=== PATIENT | male | born 1950 | race Two or more races ===

== ENCOUNTER 2024-02-27 07:21 | Inpatient (IN) | payer OTHER ==
[~2024-02-27] VITALS: Ht 170.2 cm; Wt 90.6 kg
--- NOTE | 2024-02-27 08:48 | DVH ---
CHEST RADIOGRAPH Indication: ro pna Technique: Single frontal view of the chest was obtained Comparison: None FINDINGS: Lines and Tubes: None Lungs: There are low lung volumes. There is no focal lung consolidation. Is no obvious pleural effusi on or pneumothorax. Cardiomediastinal contours: Unremarkable Pulmonary vasculature: Within normal limits. Bones: No acute osseous abnormality. IMPRESSION: 1. Low lung volumes. There is no focal lung consolidation. HS:Y
[2024-02-27 09:34] LABS: Basophils # (auto) 0.1 10 ^3/uL (0-0.2); Basophils % (auto) 0.9 % (0.0-2.0); Eosinophils # (auto) 0 10 ^3/uL (0-0.8); Eosinophils % (auto) 0.2 % (0.0-7.0); Hematocrit 43.7 % (41.0-53.0); Hemoglobin 14.6 g/dL (13.5-17.5); Lymphocytes # (auto) 0.2 10 ^3/uL (0.4-5.4); Lymphocytes % (auto) 1.8 % (10.0-50.0); Mean Corpuscular Hemoglobin 30.7 pg (28.0-32.0); Mean Corpuscular Hgb Conc. 33.5 g/dL (32.0-36.0); Mean Corpuscular Volume 91.8 fL (80.0-100.0); Neutrophils # (auto) 10.9 10 ^3/uL (1.6-8.6); Neutrophils % (auto) 89.1 % (37.0-80.0); Platelet Count (auto) 332 10^3/uL (140-450); Red Blood Cells 4.76 10^6/uL (4.5-5.90); Red Cell Distribution Width 13.5 % (11.8-14.3); White Blood Cell 12.3 10^3/uL (4.4-10.8)
[2024-02-27 09:56] LABS: Alanine Aminotransferase 11 U/L (7-40); Albumin 4.6 g/dL (3.2-4.8); Alkaline Phosphatase 114 U/L (46-116); Anion Gap 8 (5-15); BUN/Creatinine Ratio 12.3 (10.0-20.0); Bilirubin, Total 0.6 mg/dL (0.2-1.0); Blood Urea Nitrogen 14 mg/dL (9-23); Calcium 9.8 mg/dL (8.7-10.4); Carbon Dioxide 26 mmol/L (20-31); Chloride 104 mmol/L (98-107); Glucose 104 mg/dL (74-106); Sodium 138 mmol/L (136-145); Total Protein 7.7 g/dL (5.7-8.2)
[2024-02-27 10:14] LABS: Aspartate Aminotransferase 11 U/L (13-40)
--- NOTE | 2024-02-27 10:31 | ED.PDOC ---
History of Present Illness HPI Comments 73 y.o male with PMH of parkinson's disease, presents to the ED via EMS for an evaluation of generalized weakness. Patient reports he fell down, lost consciousness and woke up on the floor confused. Per , patient has been sick for a couple of days consisted of nasal drip, congestion and sweats and was pres cribed Promethazine by PCP. Patient picked medication up yesterday and took it then but woke up today very weak and unable to life himself up which is new per statement. Patient states he lives in a two story house, his room is on the second floor and woke up on the first floor today. He is unable to recollect much events, was asked if he knew what he had for dinner or lunch and was unable to answer. reports this is not his normal baseline and is usually up and ambulating. Patient denies any chest pain, SOB, abdominal pain. Chief Complaint: General Weakness Time Seen by MD: 11:28 Reviewed Notes: Allergies Allergies: Coded Allergies: NO KNOWN ALLERGIES (Unverified , 02/27/24) Information Source: Patient Mode of Arrival: EMS Severity: Moderate Timing: Hours Duration: Since onset Past Medical History Past Medical History (Other): Parkinsons Surgical History: Denies all surgeries Family History Family History: Reviewed,noncontributory to illness Social History Smoker: Non-Smoker Alcohol: Denies ETOH Use Drugs: Denies Drug Use Lives In: Home Constitutional: reports: weakness; denies: chills, diaphoresis, fatigue, fever, malaise, sweats, others EENTM: denies: blurred vision, double vision, ear bleeding, ear discharge, ear drainage, ear pain, ear ringing, eye pain, eye redness, hearing loss, mouth pain, mouth swelling, nasal discharge, nose bleeding, nose congestion, nose pain, photophobia, tearing, throat pain, throat swelling, voice changes, others Respiratory: denies: cough, hemoptysis, orthopnea, SOB at rest, shortness of breath, SOB with excertion, stridor, wheezing, others Cardiovascular: denies: chest pain, dizzy spells, diaphoresis, Dyspnea on exertion, edema, irregular heart beat, left arm pain, lightheadedness, palpitations, PND, syncope, others Gastrointestinal: denies: abdomen distended, abdominal pain, blood streaked bowels, constipated, diarrhea, dysphagia, difficulty swallowing, hematemesis, melena, nausea, poor appetite, poor fluid intake, rectal bleeding, rectal pain, vomiting, others Genitourinary: denies: burning, dysuria, flank pain, frequency, hematuria, incontinence, penile discharge, penile sore, pain, testicle pain, testicle swelling, urgency, others Neurological: denies: dizziness, fainting, headache, left sided numbness, left sided weakness, numbness, paresthesia, pre-existing deficit, right sided numb ness, right sided weakness, seizure, speech problems, tingling, tremors, weakness, others Musculoskeletal: denies: back pain, gout, joint pain, joint swelling, muscle pain, muscle stiffness, neck pain, others Integumetry: denies: bruises, change in color, change in hair/nails, dryness, laceration, lesions, lumps, rash, wounds, others Allergic/Immunocompromised: denies: Difficulty Healing, Frequent Infections, Hives, Itching, others Hematologic/Lymphatic: denies: anemia, blood clots, easy bleeding, easy bruising, swollen glands, others Endocrine: denies: excessive hunger, excessive sweating, excessive thirst, excessive urination, flushing, intolerance to cold, intolerance to heat, unexplained weight gain, unexplained weight loss, others Psychiatric: denies: anxiety, bipolar disorder, depression, hopeless, panic disorder, schizophrenia, sleepless, suicidal, others All Other Systems: Reviewed and Negative Physical Exam Exam Comments Patient lying in ambulance rthayer. Clothes were soaked with urine General Appearance: No Apparent Distress, Normal HEENT: Normal ENT Inspection Neck: Normal, Normal Inspection Respiratory: Lungs Clear, No Respiratory Distress, Normal Breath Sounds Cardiovascular: Normal Peripheral Pulses, Regular Rate/Rhythm Breast Exam: Deferred Gastrointestinal: Non Tender Genitalia: Deferred Pelvic: Deferred Rectal: Deferred Extremities: Normal inspection Neurologic: Alert, Normal Affect, Other (Does not seem to remember occurrences of yesterday) Cerebellar Function: Normal Reflexes: NOT DONE Skin: Dry, Normal Color, Warm Lymphatic: No Adenopathy Was a procedure done? Was a procedure done?: No EKG EKG : Comments 106 sinus tachycardia with non specific T wave changes Differential Dx Considerations may include: failure to thrive, dehydration, electrolyte imbalance, dementia, CVA, TIA, URI, Influenza, hypoglycemia X-Ray, Labs, Meds, VS Vital Signs Date Time Temp Pulse Resp B/P (MAP) Pulse Ox O2 Delivery O2 Flow Rate FiO2 02/27/24 14:00 102 20 135/61 (85) 93 02/27/24 13:49 102 22 94 Room Air* 0 21 02/27/24 13:38 99.2 105 20 121/70 (87) 92 99.2 02/27/24 07:39 106 02/27/24 07:37 99.5 103 20 136/84 (101) 97 Lab Test 02/27/24 12:00 02/27/24 10:50 02/27/24 09:16 02/27/24 00:00 Range/Units Troponin I High Sensitivity 4 4 3 L </=54 ng/L White Blood Count 12.3 H 4.4-10.8 10^3/uL Red Blood Count 4.76 4.5-5.90 10^6/uL Hemoglobin 14.6 13.5-17.5 g/dL Hematocrit 43.7 41.0-53.0 % Mean Corpuscular Volume 91.8 80.0-100.0 fL Mean Corpuscular Hemoglobin 30.7 28.0-32.0 pg Mean Corpuscular Hemoglobin Concent 33.5 32.0-36.0 g/dL Red Cell Distribution Width 13.5 11.8-14.3 % Platelet Count 332 140-450 10^3/uL Mean Platelet Volume 7.5 6.9-10.8 fL Neutrophils (%) (Auto) 89.1 H 37.0-80.0 % Lymphocytes (%) (Auto) 1.8 L 10.0-50.0 % Monocytes (%) (Auto) 8.0 0.0-12.0 % Eosinophils (%) (Auto) 0.2 0.0-7.0 % Basophils (%) (Auto) 0.9 0.0-2.0 % Neutrophils # (Auto) 10.9 H 1.6-8.6 10 ^3/uL Lymphocytes # (Auto) 0.2 L 0.4-5.4 10 ^3/uL Monocytes # (Auto) 1.0 0-1.3 10 ^3/uL Eosinophils # (Auto) 0 0-0.8 10 ^3/uL Basophils # (Auto) 0.1 0-0.2 10 ^3/uL Nucleated Red Blood Cells 0.0 % Sodium Level 138 136-145 mmol/L Potassium Level 4.0 3.5-5.1 mmol/L Chloride Level 104 98-107 mmol/L Carbon Dioxide Level 26 20-31 mmol/L Anion Gap 8 5-15 Blood Urea Nitrogen 14 9-23 mg/dL Creatinine 1.14 0.700-1.30 mg/dL Glomerular Filtration Rate Calc 68 >90 mL/min BUN/Creatinine Ratio 12.3 10.0-20.0 Serum Glucose 104 74-106 mg/dL Calcium Level 9.8 8.7-10.4 mg/dL Total Bilirubin 0.6 0.2-1.0 mg/dL Aspartate Amino Transferase (AST) 11 L 13-40 U/L Alanine Aminotransferase (ALT) 11 7-40 U/L Alkaline Phosphatase 114 46-116 U/L Total Protein 7.7 5.7-8.2 g/dL Albumin 4.6 3.2-4.8 g/dL Vitamin B12 Level 800 211-911 pg/mL Folic Acid 22.49 >5.38 ng/mL Thyroid Stimulating Hormone (TSH) 0.68 0.55-4.78 uIU/mL Influenza Type A Antigen Pending Influenza Type B Antigen Pending SARS-CoV-2 Antigen (Rapid) Pending 73-year-old male presents here status post fall. He did take Phenergan last night that was prescribed after a cold. And he states after he took it he felt funny. He did have a fall last night but does not recall the events. CT scan of the brain has been done which is unremarkable. Blood work also has been done which is unremarkable. At this time patient however feeling very weak and is unable to stand up and ambulate. states he has been sick with cough cold runny nose for a few days. At this time I believe he would benefit from inpatient admission and evaluation. Dr. Ugalde has been consulted. Time of 1ST Reevaluation: 12:11 Reevaluation 1ST: Unchanged Patient Education/Counseling: Diagnosis, Treatment, Prognosis Family Education/Counseling: Diagnosis, Treatment, Prognosis Departure 1 Departure Time of Disposition: 15:33 Impression: Primary Impression: Generalized weakness Disposition: ADMITTED INPATIENT Admit to: [facility] Condition: Fair Critical Care Note Critical Care Time?: No Stability Stability form required: No I personally scribed for DONNA FREDERICK MD ([email or web address]) on 02/27/24 at 10:31. Electronically submitted by Jaleesa Williamson ([facility]). I personally scribed for DONNA FREDERICK MD ([email or web address]) on 02/27/24 at 12:16. Electronically submitted by Jaleesa Williamson ([facility]). I personally scribed for DONNA FREDERICK MD ([email or web address]) on 02/27/24 at 12:17. Electronically submitted by Jaleesa Williamson ([facility]). I personally scribed for DONNA FREDERICK MD ([email or web address]) on 02/27/24 at 17:02. Electronically submitted by Jaleesa Williamson ([facility]). DONNA FREDERICK MD Feb 27, 2024 10:31
--- NOTE | 2024-02-27 13:00 | DVH ---
EXAM: CT HEAD WITHOUT CONTRAST HISTORY: sp fall COMPARISON: None TECHNIQUE: Axial images of the head were obtained and reformatted in coronal and sagittal planes. All CT scans at this medical facility are performed using dose modulation techniques as appropriate t o a performed exam including the following: Automated exposure control was utilized; adjustment of th e MA and/or KV according to patient size; and use of iterative reconstruction technique. CT Dose: CTDI volume is 59.27 mGy. Dose-length product is 950.03 mGy*cm FINDINGS: There is no evidence of acute intracranial hemorrhage, mass, mass effect midline shift. There is no h ydrocephalus or extra-axial fluid collection. Nieto-white matter differentiation is maintained. The visualized paranasal sinuses and mastoid air cells are clear. The calvarium is intact. IMPRESSION: 1. No acute intracranial process. HS:Y
[2024-02-27 13:49] VITALS: PULSE 102; RESP 22; O2SAT 94
--- NOTE | 2024-02-27 15:25 | DVHHP2 ---
History of Present Illness Reason for Visit: Generalized weakness status post fall History of Present Illness 73-year-old male who has a very poor historian currently is not at bedside. 73-year-old male with a known history of Parkinson's currently on carbidopa levodopa found to have a fall at home. Eventually patient was brought to ER. CT head shows no evidence of any acute pathology. Patient has stated that recently he had a nasal congestion flu-like symptoms eventually was given Phenergan by the primary physician. After Phenergan he was feeling altered. 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 Allergies: Coded Allergies: NO KNOWN ALLERGIES (Unverified , 02/27/24) Medications Current Medications Medications Dose Ordered Sig/Ike Route Start Time Stop Time Status Last Admin Dose Admin Sodium Chloride 1,000 ml @ 60 mls/hr [id number] IV 02/27/24 15:30 UNV Acetaminophen/ Hydrocodone Bitart 1 tab Q4HP PRN PO 02/27/24 15:30 UNV Ondansetron HCl 4 mg Q4HP PRN IV 02/27/24 15:30 UNV Docusate Sodium 100 mg BIDPRN PRN PO 02/27/24 15:30 UNV Enoxaparin Sodium 40 mg DAILY SC 02/28/24 10:00 UNV Acetaminophen 650 mg Q6HP PRN PO 02/27/24 15:30 UNV Morphine Sulfate 2 mg Q4HPRN PRN IV 02/27/24 15:30 UNV Nitroglycerin 0.4 mg Q5MINP PRN SL 02/27/24 15:30 UNV Morphine Sulfate 2 mg Q30M PRN IV 02/27/24 15:30 UNV Exam Vital Signs Vital Signs Date Time Temp Pulse Resp B/P (MAP) Pulse Ox O2 Delivery O2 Flow Rate FiO2 02/27/24 14:00 102 20 135/61 (85) 93 02/27/24 13:49 Room Air* 0 21 02/27/24 13:38 99.2 99.2 Exam HEENT pupils are reactive Neck is supple CV is S1-S2 regular rate and rhythm Respiratory diminished breath sounds bases GI positive bowel sound Extremity no edema 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 commands Labs/Xrays Labs Test 02/27/24 12:00 02/27/24 09:16 Range/Units Troponin I High Sensitivity 4 </=54 ng/L White Blood Count 12.3 H 4.4-10.8 10^3/uL Red Blood Count 4.76 4.5-5.90 10^6/uL Hemoglobin 14.6 13.5-17.5 g/dL Hematocrit 43.7 41.0-53.0 % Mean Corpuscular Volume 91.8 80.0-100.0 fL Mean Corpuscular Hemoglobin 30.7 28.0-32.0 pg Mean Corpuscular Hemoglobin Concent 33.5 32.0-36.0 g/dL Red Cell Distribution Width 13.5 11.8-14.3 % Platelet Count 332 140-450 10^3/uL Mean Platelet Volume 7.5 6.9-10.8 fL Neutrophils (%) (Auto) 89.1 H 37.0-80.0 % Lymphocytes (%) (Auto) 1.8 L 10.0-50.0 % Monocytes (%) (Auto) 8.0 0.0-12.0 % Eosinophils (%) (Auto) 0.2 0.0-7.0 % Basophils (%) (Auto) 0.9 0.0-2.0 % Neutrophils # (Auto) 10.9 H 1.6-8.6 10 ^3/uL Lymphocytes # (Auto) 0.2 L 0.4-5.4 10 ^3/uL Monocytes # (Auto) 1.0 0-1.3 10 ^3/uL Eosinophils # (Auto) 0 0-0.8 10 ^3/uL Basophils # (Auto) 0.1 0-0.2 10 ^3/uL Nucleated Red Blood Cells 0.0 % Sodium Level 138 136-145 mmol/L Potassium Level 4.0 3.5-5.1 mmol/L Chloride Level 104 98-107 mmol/L Carbon Dioxide Level 26 20-31 mmol/L Anion Gap 8 5-15 Blood Urea Nitrogen 14 9-23 mg/dL Creatinine 1.14 0.700-1.30 mg/dL Glomerular Filtration Rate Calc 68 >90 mL/min BUN/Creatinine Ratio 12.3 10.0-20.0 Serum Glucose 104 74-106 mg/dL Calcium Level 9.8 8.7-10.4 mg/dL Total Bilirubin 0.6 0.2-1.0 mg/dL Aspartate Amino Transferase (AST) 11 L 13-40 U/L Alanine Aminotransferase (ALT) 11 7-40 U/L Alkaline Phosphatase 114 46-116 U/L Total Protein 7.7 5.7-8.2 g/dL Albumin 4.6 3.2-4.8 g/dL Assessment/Plan Assessment/Plan 73-year-old male who initially presented to hospital with status post fall 1. Acute encephalopathy status post fall 2. Chronic asthma 3. Parkinson's disease -admit to telemetry, resume carbidopa levodopa -O2 supplementation as needed Plan discussed with: Patient My Orders Orders - SONIA ZAVALA MD Procedure Category Date Status Time * Medical Donation Professional CONS 02/27/24 Transmitted Consult Admit ADMIT 02/27/24 Transmitted 15:16 Code Status CODE 02/27/24 Transmitted 15:16 2 Gm Sodium Diet DIET 02/27/24 Transmitted Dinner Sodium Chloride 0.9% PHA 02/27/24 Logged 15:30 Hydrocodone-Acet PHA 02/27/24 Logged 5/325mg Tab ([place] 15:30 Ondansetron Hcl PHA 02/27/24 Logged (Zofran) 15:30 Docusate Sodium PHA 02/27/24 Logged Capsule (Colace 15:30 Enoxaparin Sodium PHA 02/28/24 Logged (Lovenox) 10:00 Complete Blood Count LAB 02/28/24 Verified 04:00 Comprehensive LAB 02/28/24 Verified Metabolic Panel 04:00 Pt Request For Service PT 02/27/24 Logged 15:16 Condition: Stable LELIA 02/27/24 In Process 15:16 Acetaminophen Tablet PHA 02/27/24 Logged (Tylenol Tablet) 15:30 Morphine Sulfate PHA 02/27/24 Logged Injection 15:30 Nitroglycerin PHA 02/27/24 Logged Sublingual (Ntrostat 15:30 Morphine Sulfate PHA 02/27/24 Logged Injection 15:30 Stat Ekg For Chest LELIA 02/27/24 In Process Pain 15:16 Notify Of Changes LELIA 02/27/24 In Process From Base 15:16 Spiral Runner For LELIA 02/27/24 In Process 24 Hours 15:16 Emergency Dysrhythmia LELIA 02/27/24 In Process Protocol 15:16 Rhythm Strips Once LELIA 02/27/24 In Process Every Shift 15:16 Oxygen By Nasal RT 02/27/24 Transmitted Cannula 15:16 Vitamin B12 LAB 02/27/24 Logged 15:16 Thyroid Stimulating LAB 02/27/24 Logged Hormone 15:16 RPR LAB 02/27/24 Logged 15:16 Folate (Folic Acid) LAB 02/27/24 Logged 15:16 Date of Service: Feb 27, 2024 Billing Provider: SONIA ZAVALA MD Common Visit Codes: NOT BILLABLE SONIA AZVALA MD Feb 27, 2024 15:25
[2024-02-27] MEDS ORDERED: MORPHINE SULFATE INJ 2 MG/ml SYRG IV PRN ×2 (15:30)
[2024-02-27] MEDS: SODIUM CHLORIDE 0.9% 1,000 ML IV SCH (15:30)
[2024-02-27] MEDS ORDERED: DOCUSATE SOD 100 MG CAP PO PRN (15:30)
[2024-02-27] MEDS ORDERED: NITROGLYCERIN 0.4 MG SL TAB SL PRN (15:30)
[2024-02-27] MEDS ORDERED: ONDANSETRON HCL 4 MG/2 ML VIAL IV PRN (15:30)
[2024-02-27 16:31] LABS: Folate (Folic Acid) 22.49 ng/mL (>5.38)
[2024-02-27] MEDS: CARBIDOPA W LEVODOPA 25/100mg TABLET PO SCH (16:46)
[2024-02-27 16:49] LABS: Urine Bacteria FEW /hpf (None Seen); Urine Blood Negative /uL (Negative); Urine Clarity Clear (Clear); Urine Color Yellow (Yellow); Urine Mucus FEW (None Seen); Urine Protein, UAD Negative (Negative); Urine Specific Gravity 1.021 (1.001-1.035); Urine Urobilinogen 2 mg/dL (Negative); Urine pH 6.5 (5.0-9.0)
[2024-02-27 17:27] LABS: Urine WBC 0 /hpf (0 - 3)
[2024-02-27 18:31] LABS: Rapid Influenza A Negative (Negative); Rapid Influenza B Negative (Negative)
[2024-02-27 18:47] LABS: COVID19 ANTIGEN SOFIA FIA POSITIVE (NEGATIVE)
[2024-02-27] MEDS: ACETAMINOPHEN 325 MG TAB PO PRN (20:50)
[2024-02-27] MEDS: HYDROcodone-ACET 5/325MG TAB PO PRN (20:50)
[2024-02-28] VITALS (18 sets, daily range): BP systolic 110–149; BP diastolic 52–79; PULSE 78–104; RESP 16–36; TEMP 98–100.1; O2SAT 92–100
[2024-02-28 04:37] LABS: Urine Bacteria None Seen /hpf (None Seen); Urine WBC None Seen /hpf (0 - 3)
[2024-02-28 04:44] LABS: Urine Blood Negative /uL (Negative); Urine Clarity Clear (Clear); Urine Color Yellow (Yellow); Urine Mucus FEW (None Seen); Urine Protein, UAD Negative (Negative); Urine Specific Gravity 1.018 (1.001-1.035); Urine Urobilinogen Normal (Negative); Urine pH 5.5 (5.0-9.0)
[2024-02-28 08:17] LABS: Basophils # (auto) 0 10 ^3/uL (0-0.2); Basophils % (auto) 0.5 % (0.0-2.0); Eosinophils # (auto) 0 10 ^3/uL (0-0.8); Eosinophils % (auto) 0.1 % (0.0-7.0); Hematocrit 42.6 % (41.0-53.0); Hemoglobin 14.8 g/dL (13.5-17.5); Lymphocytes # (auto) 0.5 10 ^3/uL (0.4-5.4); Lymphocytes % (auto) 5.3 % (10.0-50.0); Mean Corpuscular Hemoglobin 31.9 pg (28.0-32.0); Mean Corpuscular Hgb Conc. 34.7 g/dL (32.0-36.0); Monocytes # (auto) 0.9 10 ^3/uL (0-1.3); Monocytes % (auto) 10.1 % (0.0-12.0); Neutrophils # (auto) 7.3 10 ^3/uL (1.6-8.6); Platelet Count (auto) 256 10^3/uL (140-450); Red Blood Cells 4.63 10^6/uL (4.5-5.90); Red Cell Distribution Width 13.2 % (11.8-14.3); White Blood Cell 8.7 10^3/uL (4.4-10.8)
[2024-02-28 08:27] LABS: Alkaline Phosphatase 94 U/L (46-116); Anion Gap 9 (5-15); Blood Urea Nitrogen 16 mg/dL (9-23); Carbon Dioxide 24 mmol/L (20-31); Chloride 105 mmol/L (98-107); Glucose 98 mg/dL (74-106); Potassium 4.4 mmol/L (3.5-5.1); Sodium 138 mmol/L (136-145)
[2024-02-28 08:28] LABS: Albumin 4.2 g/dL (3.2-4.8)
[2024-02-28 08:29] LABS: Bilirubin, Total 0.5 mg/dL (0.2-1.0); Total Protein 6.9 g/dL (5.7-8.2)
[2024-02-28 08:33] LABS: Alanine Aminotransferase < 9 U/L (7-40); Aspartate Aminotransferase 49 U/L (13-40)
[2024-02-28] MEDS: ENOXAPARIN SOD 40 MG/0.4 ML SYRINGE SC SCH (10:28)
[2024-02-28] MEDS: DONEPEZIL HYDROCHLORIDE 5 MG TAB PO SCH (10:28)
[2024-02-28] MEDS ORDERED: ALBUTEROL SULF 2.5 MG/0.5ML(0.5%) NEB SOLN NEB PRN ×2 (16:45)
[2024-02-28] MEDS: ALBUTEROL SULF 2.5 MG/0.5ML(0.5%) NEB SOLN ONE (16:45)
[2024-02-28] MEDS: methylPREDNISolone SOD SUCC 125 MG/2 ML VL IV ONE (16:58)
--- NOTE | 2024-02-28 17:20 | ECG ---
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
--- NOTE | 2024-02-28 17:48 | DVH ---
EXAM: XY CHEST XRAY 1 VIEW TECHNIQUE: Single frontal chest radiograph CLINICAL HISTORY: sob COMPARISON: XY CHEST PORTABLE on DOS: 02/27/24 Findings/Impression: Frontal chest radiograph demonstrates no acute osseous or superficial soft tissue abnormalities. The trachea is midline. The cardiac silhouette and mediastinum are within normal limits. Marked low lung volumes with bronchovascular crowding. No pneumothorax, pleural effusions, or consolidations.
--- NOTE | 2024-02-28 19:14 | DVHPN2 ---
Subjective Overnight events noted. Patient was found to be in respiratory distress requiring 4-5 L of oxygen, stat ABG has been ordered breathing treatment and Solu-Medrol has been ordered as well patient will be upgraded to D OU. 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 following commands Medications Current Medications Medications Dose Ordered Sig/Ike Route Start Time Stop Time Status Last Admin Dose Admin Sodium Chloride 1,000 ml @ 60 mls/hr [id number] IV 02/27/24 15:30 02/28/24 08:33 60 MLS/HR Acetaminophen/ Hydrocodone Bitart 1 tab Q4HP PRN PO 02/27/24 15:30 02/28/24 16:14 1 TAB Ondansetron HCl 4 mg Q4HP PRN IV 02/27/24 15:30 Docusate Sodium 100 mg BIDPRN PRN PO 02/27/24 15:30 Enoxaparin Sodium 40 mg DAILY SC 02/28/24 10:00 02/28/24 10:28 40 MG Acetaminophen 650 mg Q6HP PRN PO 02/27/24 15:30 02/28/24 10:44 650 MG Morphine Sulfate 2 mg Q4HPRN PRN IV 02/27/24 15:30 Nitroglycerin 0.4 mg Q5MINP PRN SL 02/27/24 15:30 Morphine Sulfate 2 mg Q30M PRN IV 02/27/24 15:30 Carbidopa/Levodopa 1 tab TID PO 02/27/24 16:00 02/28/24 14:43 1 TAB Donepezil HCl 10 mg DAILY PO 02/28/24 10:00 02/28/24 10:28 10 MG Albuterol 2.5 mg Q2HPRN PRN NEB 02/28/24 16:45 Methylprednisolone Sodium Succinate 60 mg Q8HR IV 02/28/24 22:00 Laboratory Results Laboratory Tests 02/28/24 07:14 Chemistry Test 02/28/24 07:14 Albumin 4.2 g/dL (3.2-4.8) Calcium Level 9.0 mg/dL (8.7-10.4) Total Protein 6.9 g/dL (5.7-8.2) LFT Test 02/28/24 07:14 Alanine Aminotransferase (ALT) < 9 U/L (7-40) Alkaline Phosphatase 94 U/L (46-116) Aspartate Amino Transferase (AST) 49 U/L (13-40) H Total Bilirubin 0.5 mg/dL (0.2-1.0) Urinalysis Test 02/28/24 01:55 Urine Color Yellow (Yellow) Urine Clarity Clear (Clear) Urine pH 5.5 (5.0-9.0) Urine Specific [place] 1.018 (1.001-1.035) Urine Protein Negative (Negative) Urine Ketones Trace (Negative) Urine Blood Negative /uL (Negative) Urine Nitrite Negative (Negative) Urine Bilirubin Negative (Negative) Urine Urobilinogen Normal mg/dL (Negative) Urine Leukocyte Esterase Negative /uL (Negative) Urine RBC 1 /hpf (0 - 3) Urine WBC None seen /hpf (0 - 3) Urine Squamous Epithelial Cells None seen /hpf (<5) Urine Bacteria None seen /hpf (None Seen) Urine Mucus Few (None Seen) Urine Glucose Normal mg/dL (Normal) Blood Gas Results Test 02/28/24 16:54 Arterial Blood pH 7.474 (7.350-7.450) FiO2 % 40.0 Assessment/Plan Assessment/Plan 73-year-old male who initially presented to hospital with status post fall found to have 1. Acute hypoxic respiratory failure suspected secondary to acute asthma exacerbation we will rule out pulmonary embolism 2. Acute on chronic asthma exacerbation 3. Parkinson's disease 4. Acute encephalopathy secondary to 1. -med nebs, IV Solu-Medrol, stat ABG, CT angio to rule out PE. -plan of care discussed with the bedside RN as well as patient's at bedside when he was on the tele floor. Plan discussed with: Patient, Spouse My Orders Orders - SONIA ZAVALA MD Procedure Category Date Status Time * Farm Machine Operator CONS 02/28/24 Transmitted Consult 04:02 Abg W/ Co-Ox RT 02/28/24 Logged 16:31 Albuterol Medneb PHA 02/28/24 In Process (Ventolin Medneb) 16:45 Chest Xray 1 View XY 02/28/24 Resulted 16:31 *Consult CONS 02/28/24 Transmitted / 16:35 Methylprednisolone PHA 02/28/24 In Process Sod Succ (Solu Medrol 22:00 Apply Barrier Cream LELIA 02/28/24 In Process 10:00 Specialty Bed Mattress ORDERS 02/28/24 Transmitted 10:00 * Dietary Consult CONS 02/28/24 Transmitted 16:52 Transfer Orders XFER 02/28/24 Transmitted 17:03 Abg W/ Co-Ox RT 02/28/24 Logged 18:30 Mrsa Screen ANGELINA 02/28/24 In Process 18:07 Incentive Spirometry ORDERS 02/28/24 Transmitted 19:[address] Chest CT 02/28/24 Logged Contrast 19:[address] 02/28/24 Logged Contrast 19:11 Date of Service: Feb 28, 2024 Billing Provider: SONIA ZAVALA MD Common Visit Codes: NOT BILLABLE SONIA ZAVALA MD Feb 28, 2024 19:14
[2024-02-28 19:19] LABS: Base Excess -2.4 mmol/L (-2.0-3.0)
[2024-02-28] MEDS: methylPREDNISolone SOD SUCC 125 MG/2 ML VL IV SCH (21:30)
[2024-02-29] VITALS (35 sets, daily range): BP systolic 109–139; BP diastolic 55–93; PULSE 61–82; RESP 12–26; TEMP 97.7–98.8; O2SAT 91–100
[2024-02-29] MEDS: IOHEXOL 350 MG/ML 100ML IJ ONE (08:01)
--- NOTE | 2024-02-29 09:03 | DVH ---
CTA Chest with intravenous contrast INDICATION: Rule out pulmonary embolism COMPARISON: None TECHNIQUE: Multidetector spiral CTA of the chest was performed of the chest with intravenous contrast . PULMONARY ANGIOGRAPHY PROTOCOL was utilized using a bolus-tracking technique centered on the main p ulmonary artery. Axial, coronal and sagittal multiplanar and MIP reformats were performed. Radiation Dose : 1. Chest: CTDI volume is 28.09 mGy. Dose-length product is 928.65 mGy*cm The dose indicators for CT are the volume Computed Tomography (CT) Dose Index (CTDIvol) and the Dose Length Product (DLP), and are measured in units of mGy and mGy-cm, respectively. These indicators are not patient dose, but values generated from the CT scanner acquisition factors. The report includes radiation exposure data for exposures received during this examination. Findings: Pulmonary artery: No pulmonary embolism Lower neck: Normal thyroid. Lungs: Bibasilar consolidations, suspicious for pneumonia or aspiration. Probable mild interstitial p ulmonary edema. Heart/Vascular Structures: Cardiomegaly. Lymph Nodes: No adenopathy Pleura: No pleural effusion or significant pneumothorax. Musculoskeletal: No acute osseous abnormality. Soft tissues: Normal. Upper abdomen: Limited portions of the upper abdomen are unremarkable. IMPRESSION: 1. No pulmonary embolism. 2. Bibasilar consolidations, suspicious for pneumonia or aspiration. 3. Probable mild interstitial pulmonary edema.
[2024-02-29] MEDS ORDERED: guaiFENesin 200 MG/10 ML UD GT PRN (11:30)
--- NOTE | 2024-02-29 12:14 | DVHINCON2 ---
Date of service: Feb 29, [address] Pyle Reason for Consultation COVID History of Present Illness This is a 73-year-old male who presents to the hospital with a complaint of fall at home. He has a known history of Parkinson's currently on carbidopa levodopa. Eventually patient was brought to ER. CT head shows no evidence of any acute pathology. Patient has stated that recently he had a nasal congestion flu-like symptoms and sweats was treated with Phenergan by the primary physician. After Phenergan he was feeling altered. Patient states he lives in a two story house, his room is on the second floor and woke up on the first floor today. He is unable to recollect much events, was asked if he knew what he had for dinner or lunch and was unable to answer. reports this is not his normal baseline and is usually up and ambulating. Patient denies any chest pain, SOB, abdominal pain. Past Medical History asthma and Parkinson's disease Past Surgical History None Family History: Patient reports no known family medical history. Allergies: Coded Allergies: NO KNOWN ALLERGIES (Unverified , 02/27/24) Home Meds Unable to Obtain Active Prescriptions or Reported Meds Current Medications Current Medications Medications (Trade) Dose Ordered Sig/Ike Route PRN Reason Start Time Stop Time Status Last Admin Albuterol (Ventolin Medneb) 2.5 mg Q4HR PRN NEB SHORTNESS OF BREATH 02/28/24 16:45 02/28/24 16:54 DC Albuterol (Ventolin Medneb) 2.5 mg Q2HPRN PRN NEB SHORTNESS OF BREATH 02/28/24 16:45 Methylprednisolone Sodium Succinate (Solu Medrol) 60 mg Q8HR IV 02/28/24 22:00 02/29/24 05:41 Piperacillin Sod/ Tazobactam Sod 100 ml @ 25 mls/hr Q8H IV 02/29/24 12:00 Guaifenesin (Robitussin Plain Liquid) 200 mg Q4HP PRN GT FOR COUGH 02/29/24 11:30 Review of Systems General: night sweats HEENT: nasal congestion and flu symptoms Respiratory: No Cough, dyspnea, sputum production Cardiovascular: No Chest pain, palpitations or leg edema Gastrointestinal: No Nausea, vomiting, diarrhea, abdominal pain Genitourinary: No Dysuria, urinary frequency, hematuria, pelvic pain Skin: No Rashes, ulcers, abscesses, redness or swelling Musculoskeletal: No Joint pain, muscle pain or swelling Neurologic: Altered mental status, fall Psychiatric: confusion Vital Signs Vital Signs Date Time Temp Pulse Resp B/P (MAP) Pulse Ox O2 Delivery O2 Flow Rate FiO2 02/29/24 11:01 70 14 126/70 (88) 97 02/29/24 10:15 Nasal Cannula 6.0 02/29/24 10:15 44 02/29/24 08:01 98.8 98.8 Physical Exam HEENT pupils are reactive Neck is supple CV is S1-S2 regular rate and rhythm Respiratory diminished breath sounds bases GI positive bowel sound Extremity no edema honey blender no gross deficit Labs/Diagnostic Data Labs Test 02/28/24 19:00 02/28/24 16:54 02/28/24 07:14 02/28/24 01:55 Range/Units Blood Gas Specimen Type Arterial Blood Gas Sample Site Right radial Blood Gas Patient Temperature 37.0 Arterial Blood Date Drawn [id number] Arterial Blood pH 7.454 H 7.350-7.450 Arterial Blood Partial Pressure CO2 29.5 L 35.0-48.0 mmHg Arterial Blood Partial Pressure O2 71.1 L 83.0-108.0 mmHg Arterial Blood HCO3 20.2 L 21.0-28.0 mmol/L Arterial Blood Oxygen Saturation 94.3 94.0-98.0 % Arterial Blood Base Excess -2.4 L -2.0-3.0 mmol/L Arterial Blood Oxyhemoglobin 93.5 L 94.0-98.0 % Arterial Blood Carboxyhemoglobin 0.6 0.5-1.5 % Arterial Blood Methemoglobin 0.2 0.0-1.5 % Angel Test N/a Blood Gas Total Hemoglobin 14.30 13.5-17.5 g/dL Blood Gas Modality Mask - nrb FiO2 % 100.0 Blood Gas Liter Flow 5.00 Blood Gas Spontaneous Rate 32 White Blood Count 8.7 # 4.4-10.8 10^3/uL Red Blood Count 4.63 4.5-5.90 10^6/uL Hemoglobin 14.8 13.5-17.5 g/dL Hematocrit 42.6 41.0-53.0 % Mean Corpuscular Volume 92.0 80.0-100.0 fL Mean Corpuscular Hemoglobin 31.9 28.0-32.0 pg Mean Corpuscular Hemoglobin Concent 34.7 32.0-36.0 g/dL Red Cell Distribution Width 13.2 11.8-14.3 % Platelet Count 256 140-450 10^3/uL Mean Platelet Volume 7.7 6.9-10.8 fL Neutrophils (%) (Auto) 84.0 H 37.0-80.0 % Lymphocytes (%) (Auto) 5.3 L 10.0-50.0 % Monocytes (%) (Auto) 10.1 0.0-12.0 % Eosinophils (%) (Auto) 0.1 0.0-7.0 % Basophils (%) (Auto) 0.5 0.0-2.0 % Neutrophils # (Auto) 7.3 1.6-8.6 10 ^3/uL Lymphocytes # (Auto) 0.5 0.4-5.4 10 ^3/uL Monocytes # (Auto) 0.9 0-1.3 10 ^3/uL Eosinophils # (Auto) 0 0-0.8 10 ^3/uL Basophils # (Auto) 0 0-0.2 10 ^3/uL Nucleated Red Blood Cells 0.0 % Sodium Level 138 136-145 mmol/L Potassium Level 4.4 3.5-5.1 mmol/L Chloride Level 105 98-107 mmol/L Carbon Dioxide Level 24 20-31 mmol/L Anion Gap 9 5-15 Blood Urea Nitrogen 16 9-23 mg/dL Creatinine 1.14 0.700-1.30 mg/dL Glomerular Filtration Rate Calc 68 >90 mL/min BUN/Creatinine Ratio 14.0 10.0-20.0 Serum Glucose 98 74-106 mg/dL Calcium Level 9.0 8.7-10.4 mg/dL Total Bilirubin 0.5 0.2-1.0 mg/dL Aspartate Amino Transferase (AST) 49 H 13-40 U/L Alanine Aminotransferase (ALT) < 9 7-40 U/L Alkaline Phosphatase 94 46-116 U/L Total Protein 6.9 5.7-8.2 g/dL Albumin 4.2 3.2-4.8 g/dL Urine Color Yellow Yellow Urine Clarity Clear Clear Urine pH 5.5 5.0-9.0 Urine Specific [place] 1.018 1.001-1.035 Urine Protein Negative Negative Urine Ketones Trace Negative Urine Blood Negative Negative /uL Urine Nitrite Negative Negative Urine Bilirubin Negative Negative Urine Urobilinogen Normal Negative mg/dL Urine Leukocyte Esterase Negative Negative /uL Urine RBC 1 0 - 3 /hpf Urine WBC None seen 0 - 3 /hpf Urine Squamous Epithelial Cells None seen <5 /hpf Urine Bacteria None seen None Seen /hpf Urine Mucus Few None Seen Urine Glucose Normal Normal mg/dL Test 02/27/24 17:25 02/27/24 12:00 02/27/24 09:16 02/27/24 00:00 Range/Units Troponin I High Sensitivity 4 </=54 ng/L Vitamin B12 Level 800 211-911 pg/mL Folic Acid 22.49 >5.38 ng/mL Thyroid Stimulating Hormone (TSH) 0.68 0.55-4.78 uIU/mL Influenza Type A Antigen Negative Negative Influenza Type B Antigen Negative Negative SARS-CoV-2 Antigen (Rapid) Positive *A NEGATIVE Assessment A 73 year-old male with 1. COVID-19 infection 2. Acute hypoxic respiratory failure on O2 3. Acute encephalopathy status post fall 4. Chronic asthma 5. Parkinson's disease Recommendations 1. start remdesivir for 3-5 days 2. Continue dexamethasone 6 mg per daily ( or equivalent steroids) for 10 days or until discharge 3. Consider self proning 4. Discontinue antibiotics as the bacterial coinfection with initial presentation of Covid is less than 10% hence IDSA/NIH does not recommend empiric antibiotics. Thank you for opportunity of caring this patient Plan discussed with: JANN Carreon MD Feb 29, 2024 12:14
[2024-02-29] MEDS: PIPERACILLIN-TAZOB 3.375GM 100 ML IV SCH (12:38)
--- NOTE | 2024-02-29 17:26 | DVHPN2 ---
Subjective Patient's CT angio shows no evidence of PE but bilateral consolidation. Patient is currently on 4 L of oxygen Reviewed: Care Plan Changes from previous H/P or p: No Changes Objective Vitals Vital Signs Date Time Temp Pulse Resp B/P (MAP) Pulse Ox O2 Delivery O2 Flow Rate FiO2 02/29/24 15:00 61 21 124/64 (84) 95 02/29/24 14:00 Nasal Cannula* 4 36 02/29/24 12:00 97.7 97.7 Intake/Output Intake and Output 02/29/24 07:00 Intake Total 1160 ml Output Total 450 ml Balance 710 ml Intake Oral 320 ml IV Total 840 ml Output Urine Total 450 ml Stool Total 0 ml # Voids 5 Exam HEENT pupils are reactive Neck is supple CV is S1-S2 regular rate and rhythm Respiratory bilateral expiratory rhonchi GI positive bowel sound Extremity no edema [employer]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 [employer] patient is minimally following commands Medications Current Medications Medications Dose Ordered Sig/Ike Route Start Time Stop Time Status Last Admin Dose Admin Acetaminophen/ Hydrocodone Bitart 1 tab Q4HP PRN PO 02/27/24 15:30 02/28/24 16:14 1 TAB Ondansetron HCl 4 mg Q4HP PRN IV 02/27/24 15:30 Docusate Sodium 100 mg BIDPRN PRN PO 02/27/24 15:30 Enoxaparin Sodium 40 mg DAILY SC 02/28/24 10:00 02/29/24 09:42 40 MG Acetaminophen 650 mg Q6HP PRN PO 02/27/24 15:30 02/29/24 06:32 650 MG Morphine Sulfate 2 mg Q4HPRN PRN IV 02/27/24 15:30 Nitroglycerin 0.4 mg Q5MINP PRN SL 02/27/24 15:30 Morphine Sulfate 2 mg Q30M PRN IV 02/27/24 15:30 Carbidopa/Levodopa 1 tab TID PO 02/27/24 16:00 02/29/24 14:01 1 TAB Donepezil HCl 10 mg DAILY PO 02/28/24 10:00 02/29/24 09:42 10 MG Albuterol 2.5 mg Q2HPRN PRN NEB 02/28/24 16:45 Methylprednisolone Sodium Succinate 60 mg Q8HR IV 02/28/24 22:00 02/29/24 14:01 60 MG Piperacillin Sod/ Tazobactam Sod 100 ml @ 25 mls/hr Q8H IV 02/29/24 12:00 02/29/24 12:38 25 MLS/HR Guaifenesin 200 mg Q4HP PRN GT 02/29/24 11:30 Albuterol 2.5 mg Q4HWA NEB 02/29/24 18:00 UNV Laboratory Results Laboratory Tests 02/28/24 07:14 Urinalysis Test 02/28/24 01:55 Urine Color Yellow (Yellow) Urine Clarity Clear (Clear) Urine pH 5.5 (5.0-9.0) Urine Specific [place] 1.018 (1.001-1.035) Urine Protein Negative (Negative) Urine Ketones Trace (Negative) Urine Blood Negative /uL (Negative) Urine Nitrite Negative (Negative) Urine Bilirubin Negative (Negative) Urine Urobilinogen Normal mg/dL (Negative) Urine Leukocyte Esterase Negative /uL (Negative) Urine RBC 1 /hpf (0 - 3) Urine WBC None seen /hpf (0 - 3) Urine Squamous Epithelial Cells None seen /hpf (<5) Urine Bacteria None seen /hpf (None Seen) Urine Mucus Few (None Seen) Urine Glucose Normal mg/dL (Normal) Blood Gas Results Test 02/28/24 19:00 Arterial Blood pH 7.454 (7.350-7.450) FiO2 % 100.0 Microbiology Microbiology Date/Time Source Procedure Growth Status 02/28/24 18:08 Nose MRSA Screen - Final Complete Assessment/Plan Assessment/Plan 73-year-old male who initially presented to hospital with status post fall found to have 1. Acute hypoxic respiratory failure suspected secondary to acute asthma exacerbation , PE has been ruled out 2. Acute on chronic asthma exacerbation 3. Bilateral pneumonia 4. Acute viral pneumonia with a positive COVID-19 5. Parkinson's disease 6. Acute encephalopathy secondary to 1., improving -med nebs, IV Solu-Medrol, IV antibiotics, Pulmonary and Infectious Disease consultation -plan of care discussed with the bedside RN as well as patient's in the presence of nurse lately. Plan discussed with: Patient, Spouse My Orders Orders - SONIA ZAVALA MD Procedure Category Date Status Time Incentive Spirometry ORDERS 02/28/24 Transmitted 19:[address] 02/28/24 Resulted Contrast 19:11 * Infectious Meenu- CONS 02/29/24 Transmitted Mallad 11:22 Piperacillin-Tazob PHA 02/29/24 In Process 3.375gm (Zosyn 3.375g 12:00 Guaifenesin Plain PHA 02/29/24 In Process Liquid (Robitussin Talya 11:30 Albuterol Medneb PHA 02/29/24 Logged (Ventolin Medneb) 18:00 Date of Service: Feb 29, 2024 Billing Provider: SONIA ZAVALA MD Common Visit Codes: NOT BILLABLE SONIA ZAVALA MD Feb 29, 2024 17:26
--- NOTE | 2024-02-29 18:31 | DVHINCON2 ---
Date of service: Feb 28, [address] Fairbanks Reason for Consultation Acute on chronic hypoxic respiratory failure History of Present Illness A 73-year-old man with known past medical history of asthma and Parkinson's disease, currently on carbidopa-levodopa, who was brought in to the ED on 02/27/24 status post a fall at home. History is limited - pt is a very poor historian and was not at bedside. CT head showed no evidence of any acute pathology. Patient also reported recent episode of nasal congestion and flu- like symptoms, eventually was given Phenergan by the primary physician; after Phenergan he was feeling altered. Patient denied any fevers, chills, or shortness of breath. He was admitted for further care and pulmonary consultation is requested for evaluation and management due to acute on chronic hypoxic respiratory failure. Review of Systems: 14-point review of systems negative unless otherwise noted above. Past Medical History: Asthma and Parkinson's disease Past Surgical History: None. Medications: Reviewed. Allergies: No known drug allergies. Family History: No family history of premature CAD. No family history of lung disorders. Social History: Nonsmoker. No alcohol or illicit drug use. Family History: Patient reports no known family medical history. Allergies: Coded Allergies: NO KNOWN ALLERGIES (Unverified , 02/27/24) Home Meds Unable to Obtain Active Prescriptions or Reported Meds Current Medications Current Medications Medications (Trade) Dose Ordered Sig/Ike Route PRN Reason Start Time Stop Time Status Last Admin Methylprednisolone Sodium Succinate (Solu Medrol) 60 mg Q8HR IV 02/28/24 22:00 02/29/24 14:01 Piperacillin Sod/ Tazobactam Sod 100 ml @ 25 mls/hr Q8H IV 02/29/24 12:00 02/29/24 12:38 Guaifenesin (Robitussin Plain Liquid) 200 mg Q4HP PRN GT FOR COUGH 02/29/24 11:30 Albuterol (Ventolin Medneb) 2.5 mg Q4HWA NEB 02/29/24 18:00 Vital Signs Vital Signs Date Time Temp Pulse Resp B/P (MAP) Pulse Ox O2 Delivery O2 Flow Rate FiO2 02/29/24 18:00 63 02/29/24 15:00 21 124/64 (84) 95 02/29/24 14:00 Nasal Cannula* 4 36 02/29/24 12:00 97.7 97.7 Physical Exam Gen.: Patient lying in bed in no apparent distress. On supplemental oxygen. Head: Normocephalic, atraumatic. Eyes: EOMI/PERRLA. Ears: Normal hearing. Normal anatomy. Neck/trachea: Trachea midline, supple. Nose: Normal external anatomy. Mouth: Moist mucous membranes. Chest: Decreased air entry bilaterally. No wheezing or rhonchi. Cardiovascular: Positive S1, positive S2. Regular rate and rhythm. Abdomen: Positive bowel sounds in all 4 quadrants. Soft, non-tender, non- distended. : Deferred. Rectal: Deferred. Skin: Warm, dry. Intact. Extremities: 2+ radial pulses bilaterally. No lower extremity edema. Neuro: Awake, alert, oriented x3. No gross motor or sensory deficits. Cranial nerves II through XII intact. Gait not assessed. Labs/Diagnostic Data Labs Test 02/28/24 19:00 02/28/24 16:54 02/28/24 07:14 02/28/24 01:55 Range/Units Blood Gas Specimen Type Arterial Blood Gas Sample Site Right radial Blood Gas Patient Temperature 37.0 Arterial Blood Date Drawn [id number] Arterial Blood pH 7.454 H 7.350-7.450 Arterial Blood Partial Pressure CO2 29.5 L 35.0-48.0 mmHg Arterial Blood Partial Pressure O2 71.1 L 83.0-108.0 mmHg Arterial Blood HCO3 20.2 L 21.0-28.0 mmol/L Arterial Blood Oxygen Saturation 94.3 94.0-98.0 % Arterial Blood Base Excess -2.4 L -2.0-3.0 mmol/L Arterial Blood Oxyhemoglobin 93.5 L 94.0-98.0 % Arterial Blood Carboxyhemoglobin 0.6 0.5-1.5 % Arterial Blood Methemoglobin 0.2 0.0-1.5 % Angel Test N/a Blood Gas Total Hemoglobin 14.30 13.5-17.5 g/dL Blood Gas Modality Mask - nrb FiO2 % 100.0 Blood Gas Liter Flow 5.00 Blood Gas Spontaneous Rate 32 White Blood Count 8.7 # 4.4-10.8 10^3/uL Red Blood Count 4.63 4.5-5.90 10^6/uL Hemoglobin 14.8 13.5-17.5 g/dL Hematocrit 42.6 41.0-53.0 % Mean Corpuscular Volume 92.0 80.0-100.0 fL Mean Corpuscular Hemoglobin 31.9 28.0-32.0 pg Mean Corpuscular Hemoglobin Concent 34.7 32.0-36.0 g/dL Red Cell Distribution Width 13.2 11.8-14.3 % Platelet Count 256 140-450 10^3/uL Mean Platelet Volume 7.7 6.9-10.8 fL Neutrophils (%) (Auto) 84.0 H 37.0-80.0 % Lymphocytes (%) (Auto) 5.3 L 10.0-50.0 % Monocytes (%) (Auto) 10.1 0.0-12.0 % Eosinophils (%) (Auto) 0.1 0.0-7.0 % Basophils (%) (Auto) 0.5 0.0-2.0 % Neutrophils # (Auto) 7.3 1.6-8.6 10 ^3/uL Lymphocytes # (Auto) 0.5 0.4-5.4 10 ^3/uL Monocytes # (Auto) 0.9 0-1.3 10 ^3/uL Eosinophils # (Auto) 0 0-0.8 10 ^3/uL Basophils # (Auto) 0 0-0.2 10 ^3/uL Nucleated Red Blood Cells 0.0 % Sodium Level 138 136-145 mmol/L Potassium Level 4.4 3.5-5.1 mmol/L Chloride Level 105 98-107 mmol/L Carbon Dioxide Level 24 20-31 mmol/L Anion Gap 9 5-15 Blood Urea Nitrogen 16 9-23 mg/dL Creatinine 1.14 0.700-1.30 mg/dL Glomerular Filtration Rate Calc 68 >90 mL/min BUN/Creatinine Ratio 14.0 10.0-20.0 Serum Glucose 98 74-106 mg/dL Calcium Level 9.0 8.7-10.4 mg/dL Total Bilirubin 0.5 0.2-1.0 mg/dL Aspartate Amino Transferase (AST) 49 H 13-40 U/L Alanine Aminotransferase (ALT) < 9 7-40 U/L Alkaline Phosphatase 94 46-116 U/L Total Protein 6.9 5.7-8.2 g/dL Albumin 4.2 3.2-4.8 g/dL Urine Color Yellow Yellow Urine Clarity Clear Clear Urine pH 5.5 5.0-9.0 Urine Specific [place] 1.018 1.001-1.035 Urine Protein Negative Negative Urine Ketones Trace Negative Urine Blood Negative Negative /uL Urine Nitrite Negative Negative Urine Bilirubin Negative Negative Urine Urobilinogen Normal Negative mg/dL Urine Leukocyte Esterase Negative Negative /uL Urine RBC 1 0 - 3 /hpf Urine WBC None seen 0 - 3 /hpf Urine Squamous Epithelial Cells None seen <5 /hpf Urine Bacteria None seen None Seen /hpf Urine Mucus Few None Seen Urine Glucose Normal Normal mg/dL Test 02/27/24 17:25 02/27/24 12:00 02/27/24 09:16 02/27/24 00:00 Range/Units Troponin I High Sensitivity 4 </=54 ng/L Vitamin B12 Level 800 211-911 pg/mL Folic Acid 22.49 >5.38 ng/mL Thyroid Stimulating Hormone (TSH) 0.68 0.55-4.78 uIU/mL Influenza Type A Antigen Negative Negative Influenza Type B Antigen Negative Negative SARS-CoV-2 Antigen (Rapid) Positive *A NEGATIVE Microbiology Date/Time Source Procedure Growth Status 02/28/24 18:08 Nose MRSA Screen - Final Complete Assessment Impression: Acute metabolic encephalopathy status post fall Chronic asthma Parkinson's disease Obesity, BMI 31 Acute on chronic hypoxic respiratory failure Leucocytosis Metabolic acidosis COVID positive/Viral pneumonia Plan: ABG reviewed. Alkalemia due to respiratory alkalosis Monitor respiratory status closely Tachypneic due to metabolic acidosis Supplemental oxygen Increasing o2 requirements Keep o2 sat above 92% IS HOB elevation Aspiration pre-cautions Bronchodilators IV steroids Antitussive PRN Antibiotics- Zosyn F/u culture F/u ID recommendations DVT prophylaxis- Lovenox Prognosis: Poor given patient's multiple co-morbidities. Condition: Critical Rest of plan per hospitalist and other consultants. A total of 36 minutes of critical care time was spent reviewing the patient record, examining the patient, making a diagnostic and therapeutic plan, discussing this plan with the medical personnel, following up on diagnostic studies and following the patient for clinical stability excluding any and all procedures. At least 50% of this time was spent in direct, [id number] contact. Thank you, Dr. Fairbanks, for allowing me to participate in this patient's care. Further recommendations will depend on the patient's clinical course. Please do not hesitate to contact me if you have any questions or concerns. This medical document was created using an electronic medical record system with [employer] computerized dictation system. Although these documentations are being carefully reviewed, there may still be some phonetic and typographical changes. The errors are purely typographical, due to imperfection on the software program, and do not reflect any compromise in the patient's medical care. Plan discussed with: Patient, Other (RN, MD) JACKSON CURRAN MD Feb 29, 2024 18:31
[2024-02-29] MEDS: ALBUTEROL SULF 2.5 MG/0.5ML(0.5%) NEB SOLN NEB SCH (19:00)
--- NOTE | 2024-02-29 19:56 | DVHPN2 ---
Progress Note - Dictate Date Seen: Feb 29, 2024 Medical Necessity Reason Pt with a Central, PICC or Fol: No Subjective Patient seen and examined at bedside. Remains on supplemental oxygen Overnight events reviewed. vital signs Vital Sign Date Time Temp Pulse Resp B/P (MAP) Pulse Ox O2 Delivery O2 Flow Rate FiO2 02/29/24 19:10 67 18 97 02/29/24 19:00 Nasal Cannula 4.0 02/29/24 19:00 36 02/29/24 18:00 121/73 (89) 02/29/24 16:00 98.2 98.2 Total Intake and Output 02/28/24 02/28/24 02/29/24 15:00 23:00 07:00 Intake Total 560 ml 600 ml Output Total 100 ml 350 ml Balance 460 ml 250 ml medications Current Medications Medications Dose Ordered Sig/Ike Route Start Time Stop Time Status Last Admin Dose Admin Acetaminophen/ Hydrocodone Bitart 1 tab Q4HP PRN PO 02/27/24 15:30 02/28/24 16:14 1 TAB Ondansetron HCl 4 mg Q4HP PRN IV 02/27/24 15:30 Docusate Sodium 100 mg BIDPRN PRN PO 02/27/24 15:30 Enoxaparin Sodium 40 mg DAILY SC 02/28/24 10:00 02/29/24 09:42 40 MG Acetaminophen 650 mg Q6HP PRN PO 02/27/24 15:30 02/29/24 06:32 650 MG Morphine Sulfate 2 mg Q4HPRN PRN IV 02/27/24 15:30 Nitroglycerin 0.4 mg Q5MINP PRN SL 02/27/24 15:30 Morphine Sulfate 2 mg Q30M PRN IV 02/27/24 15:30 Carbidopa/Levodopa 1 tab TID PO 02/27/24 16:00 02/29/24 14:01 1 TAB Donepezil HCl 10 mg DAILY PO 02/28/24 10:00 02/29/24 09:42 10 MG Albuterol 2.5 mg Q2HPRN PRN NEB 02/28/24 16:45 Methylprednisolone Sodium Succinate 60 mg Q8HR IV 02/28/24 22:00 02/29/24 14:01 60 MG Piperacillin Sod/ Tazobactam Sod 100 ml @ 25 mls/hr Q8H IV 02/29/24 12:00 02/29/24 12:38 25 MLS/HR Guaifenesin 200 mg Q4HP PRN GT 02/29/24 11:30 Albuterol 2.5 mg Q4HWA NEB 02/29/24 18:00 02/29/24 19:00 2.5 MG objective Gen.: Patient lying in bed in no apparent distress. On supplemental oxygen. Head: Normocephalic, atraumatic. Eyes: EOMI/PERRLA. Ears: Normal hearing. Normal anatomy. Neck/trachea: Trachea midline, supple. Nose: Normal external anatomy. Mouth: Moist mucous membranes. Chest: Decreased air entry bilaterally. No wheezing or rhonchi. Cardiovascular: Positive S1, positive S2. Regular rate and rhythm. Abdomen: Positive bowel sounds in all 4 quadrants. Soft, non-tender, non- distended. : Deferred. Rectal: Deferred. Skin: Warm, dry. Intact. Extremities: 2+ radial pulses bilaterally. No lower extremity edema. Neuro: Awake, alert, oriented x3. No gross motor or sensory deficits. Cranial nerves II through XII intact. Gait not assessed. laboratory and microbiology Laboratory Tests 02/28/24 07:14 Test 02/28/24 07:14 Range/Units Serum Glucose 98 74-106 mg/dL Assessment/Plan Impression: Acute metabolic encephalopathy status post fall Chronic asthma Parkinson's disease Obesity, BMI 31 Acute on chronic hypoxic respiratory failure Leucocytosis Metabolic acidosis COVID positive/Viral pneumonia Events: Remains on supplemental oxygen, 4 LPM NC Taper O2 as tolerated Improving O2 requirements. CTA demonstrates no e/o pulmonary embolism, bibasilar pneumonia and mild interstitial pulmonary edema. Continue bronchodilators Continue IV steroids Continue IV antibiotics Antitussive for cough. Patient is stable for discharge from the pulmonary standpoint. Labs and imaging reviewed. Rest of plan as noted below. Plan: ABG reviewed. Alkalemia due to respiratory alkalosis Monitor respiratory status closely Tachypneic due to metabolic acidosis Supplemental oxygen Keep o2 sat above 92% IS HOB elevation Aspiration pre-cautions Bronchodilators IV steroids Antitussive PRN Antibiotics- Zosyn F/u culture F/u ID recommendations DVT prophylaxis- Lovenox Prognosis: Poor given patient's multiple co-morbidities. Condition: Critical Rest of plan per hospitalist and other consultants. A total of 35 minutes of critical care time was spent reviewing the patient record, examining the patient, making a diagnostic and therapeutic plan, discussing this plan with the medical personnel, following up on diagnostic studies and following the patient for clinical stability excluding any and all procedures. At least 50% of this time was spent in direct, [id number] contact. Thank you, Dr. Fairbanks, for allowing me to participate in this patient's care. Further recommendations will depend on the patient's clinical course. Please do not hesitate to contact me if you have any questions or concerns. This medical document was created using an electronic medical record system with [employer] dictation system. Although these documentations are being carefully reviewed, there may still be some phonetic and typographical changes. The errors are purely typographical, due to imperfection on the software program, and do not reflect any compromise in the patient's medical care. Plan discussed with: Other (ABAD Alejandro) Critical Care Time(min): 35 JACKSON CURRAN MD Feb 29, 2024 19:56
[2024-03-01] VITALS (29 sets, daily range): BP systolic 113–145; BP diastolic 63–94; PULSE 57–79; RESP 9–25; TEMP 98–98.7; O2SAT 91–99
[2024-03-01 04:30] LABS: Basophils # (auto) 0.1 10 ^3/uL (0-0.2); Basophils % (auto) 0.4 % (0.0-2.0); Eosinophils # (auto) 0 10 ^3/uL (0-0.8); Hematocrit 40.6 % (41.0-53.0); Hemoglobin 13.4 g/dL (13.5-17.5); Lymphocytes # (auto) 0.3 10 ^3/uL (0.4-5.4); Lymphocytes % (auto) 1.8 % (10.0-50.0); Mean Corpuscular Hemoglobin 30.4 pg (28.0-32.0); Mean Corpuscular Volume 92.3 fL (80.0-100.0); Monocytes # (auto) 0.5 10 ^3/uL (0-1.3); Monocytes % (auto) 2.8 % (0.0-12.0); Neutrophils # (auto) 16.7 10 ^3/uL (1.6-8.6); Nucleated Red Blood Cells % 0.1 %; Platelet Count (auto) 223 10^3/uL (140-450); Red Cell Distribution Width 13.5 % (11.8-14.3); White Blood Cell 17.6 10^3/uL (4.4-10.8)
[2024-03-01 04:57] LABS: Anion Gap 9 (5-15); Carbon Dioxide 23 mmol/L (20-31); Potassium 3.7 mmol/L (3.5-5.1); Sodium 140 mmol/L (136-145)
[2024-03-01 04:58] LABS: Calcium 8.8 mg/dL (8.7-10.4)
[2024-03-01 05:03] LABS: BUN/Creatinine Ratio 19.3 (10.0-20.0); Blood Urea Nitrogen 17 mg/dL (9-23)
[2024-03-01 05:05] LABS: Chloride 108 mmol/L (98-107); Glucose 160 mg/dL (74-106)
[2024-03-01] MEDS ORDERED: REMDESIVIR PER PHARMACY 0 ML IV SCH (15:00)
--- NOTE | 2024-03-01 16:10 | DVHPN2 ---
Subjective Patient's CT angio shows no evidence of PE but bilateral consolidation. Patient is currently on 4 L of oxygen Reviewed: Care Plan Changes from previous H/P or p: No Changes Objective Vitals Vital Signs Date Time Temp Pulse Resp B/P (MAP) Pulse Ox O2 Delivery O2 Flow Rate FiO2 03/01/24 14:51 71 20 97 03/01/24 14:43 Nasal Cannula 4.0 03/01/24 14:43 36 03/01/24 10:00 03/01/24 04:00 98.0 98.0 Intake/Output Intake and Output 03/01/24 07:00 Intake Total 1400 ml Output Total 1601 ml Balance -201 ml Intake Oral 1020 ml IV Total 380 ml Output Urine Total 1600 ml Stool Total 1 ml Exam HEENT pupils are reactive Neck is supple CV is S1-S2 regular rate and rhythm Respiratory bilateral expiratory rhonchi GI positive bowel sound Extremity no edema 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 patient is minimally following commands Medications Current Medications Medications Dose Ordered Sig/Ike Route Start Time Stop Time Status Last Admin Dose Admin Acetaminophen/ Hydrocodone Bitart 1 tab Q4HP PRN PO 02/27/24 15:30 02/28/24 16:14 1 TAB Ondansetron HCl 4 mg Q4HP PRN IV 02/27/24 15:30 Docusate Sodium 100 mg BIDPRN PRN PO 02/27/24 15:30 Enoxaparin Sodium 40 mg DAILY SC 02/28/24 10:00 03/01/24 08:27 40 MG Acetaminophen 650 mg Q6HP PRN PO 02/27/24 15:30 02/29/24 06:32 650 MG Morphine Sulfate 2 mg Q4HPRN PRN IV 02/27/24 15:30 Nitroglycerin 0.4 mg Q5MINP PRN SL 02/27/24 15:30 Morphine Sulfate 2 mg Q30M PRN IV 02/27/24 15:30 Carbidopa/Levodopa 1 tab TID PO 02/27/24 16:00 03/01/24 15:27 1 TAB Donepezil HCl 10 mg DAILY PO 02/28/24 10:00 03/01/24 08:27 10 MG Albuterol 2.5 mg Q2HPRN PRN NEB 02/28/24 16:45 Methylprednisolone Sodium Succinate 60 mg Q8HR IV 02/28/24 22:00 03/01/24 15:26 60 MG Piperacillin Sod/ Tazobactam Sod 100 ml @ 25 mls/hr Q8H IV 02/29/24 12:00 03/01/24 14:56 25 MLS/HR Guaifenesin 200 mg Q4HP PRN GT 02/29/24 11:30 Albuterol 2.5 mg Q4HWA NEB 02/29/24 18:00 03/01/24 14:37 2.5 MG Remdesivir 0 ml @ 0 mls/hr PER PHARMACY IV 03/01/24 15:00 03/03/24 15:01 UNV Laboratory Results Laboratory Tests 03/01/24 03:50 Chemistry Test 03/01/24 03:50 Calcium Level 8.8 mg/dL (8.7-10.4) Urinalysis Test 02/28/24 01:55 Urine Color Yellow (Yellow) Urine Clarity Clear (Clear) Urine pH 5.5 (5.0-9.0) Urine Specific [place] 1.018 (1.001-1.035) Urine Protein Negative (Negative) Urine Ketones Trace (Negative) Urine Blood Negative /uL (Negative) Urine Nitrite Negative (Negative) Urine Bilirubin Negative (Negative) Urine Urobilinogen Normal mg/dL (Negative) Urine Leukocyte Esterase Negative /uL (Negative) Urine RBC 1 /hpf (0 - 3) Urine WBC None seen /hpf (0 - 3) Urine Squamous Epithelial Cells None seen /hpf (<5) Urine Bacteria None seen /hpf (None Seen) Urine Mucus Few (None Seen) Urine Glucose Normal mg/dL (Normal) Microbiology Microbiology Date/Time Source Procedure Growth Status 02/28/24 18:08 Nose MRSA Screen - Final Complete Assessment/Plan Assessment/Plan 73-year-old male who initially presented to hospital with status post fall found to have 1. Acute hypoxic respiratory failure suspected secondary to acute asthma exacerbation , PE has been ruled out, CURRENTLY ON 4 L 2. Acute on chronic asthma exacerbation 3. Bilateral pneumonia 4. Acute viral pneumonia with a positive COVID-19 5. Parkinson's disease 6. Acute encephalopathy secondary to 1., improving -med nebs, IV Solu-Medrol, IV antibiotics, Pulmonary and Infectious Disease consultation -plan of care discussed with the bedside RN . Plan discussed with: Patient My Orders Orders - SONIA ZAVALA MD Procedure Category Date Status Time Albuterol Medneb PHA 02/29/24 In Process (Ventolin Medneb) 18:00 Date of Service: Mar 01, 2024 Billing Provider: SONIA ZAVALA MD Common Visit Codes: NOT BILLABLE SONIA ZAVALA MD Mar 01, 2024 16:10
[2024-03-01] MEDS: REMDESIVIR 200mg in NS 210mL LOADING DOSE ADULT IV ONE (18:22)
--- NOTE | 2024-03-01 20:42 | DVHPN2 ---
Progress Note - Dictate Date Seen: Mar 01, 2024 Medical Necessity Reason Pt with a Central, PICC or Fol: No Subjective Patient seen and examined at bedside. Remains on supplemental oxygen Overnight events reviewed. vital signs Vital Sign Date Time Temp Pulse Resp B/P (MAP) Pulse Ox O2 Delivery O2 Flow Rate FiO2 03/01/24 19:44 66 22 99 03/01/24 19:36 Nasal Cannula 4.0 03/01/24 19:36 36 03/01/24 17:00 98.3 145/80 (101) 98.3 Total Intake and Output 02/29/24 02/29/24 03/01/24 15:00 23:00 07:00 Intake Total 280 ml 720 ml 400 ml Output Total 801 ml 800 ml Balance 280 ml -81 ml -400 ml medications Current Medications Medications Dose Ordered Sig/Ike Route Start Time Stop Time Status Last Admin Dose Admin Acetaminophen/ Hydrocodone Bitart 1 tab Q4HP PRN PO 02/27/24 15:30 02/28/24 16:14 1 TAB Ondansetron HCl 4 mg Q4HP PRN IV 02/27/24 15:30 Docusate Sodium 100 mg BIDPRN PRN PO 02/27/24 15:30 Enoxaparin Sodium 40 mg DAILY SC 02/28/24 10:00 03/01/24 08:27 40 MG Acetaminophen 650 mg Q6HP PRN PO 02/27/24 15:30 03/01/24 18:23 650 MG Morphine Sulfate 2 mg Q4HPRN PRN IV 02/27/24 15:30 Nitroglycerin 0.4 mg Q5MINP PRN SL 02/27/24 15:30 Morphine Sulfate 2 mg Q30M PRN IV 02/27/24 15:30 Carbidopa/Levodopa 1 tab TID PO 02/27/24 16:00 03/01/24 15:27 1 TAB Donepezil HCl 10 mg DAILY PO 02/28/24 10:00 03/01/24 08:27 10 MG Albuterol 2.5 mg Q2HPRN PRN NEB 02/28/24 16:45 Methylprednisolone Sodium Succinate 60 mg Q8HR IV 02/28/24 22:00 03/01/24 15:26 60 MG Piperacillin Sod/ Tazobactam Sod 100 ml @ 25 mls/hr Q8H IV 02/29/24 12:00 03/01/24 14:56 25 MLS/HR Guaifenesin 200 mg Q4HP PRN GT 02/29/24 11:30 Albuterol 2.5 mg Q4HWA NEB 02/29/24 18:00 03/01/24 19:36 2.5 MG Remdesivir 0 ml @ 0 mls/hr PER PHARMACY IV 03/01/24 15:00 03/03/24 15:01 Remdesivir 100 mg/ Sodium Chloride 250 ml @ 250 mls/hr DAILY@1500 IV 03/02/24 15:00 03/03/24 15:59 objective Gen.: Patient lying in bed in no apparent distress. On supplemental oxygen. Head: Normocephalic, atraumatic. Eyes: EOMI/PERRLA. Ears: Normal hearing. Normal anatomy. Neck/trachea: Trachea midline, supple. Nose: Normal external anatomy. Mouth: Moist mucous membranes. Chest: Decreased air entry bilaterally. No wheezing or rhonchi. Cardiovascular: Positive S1, positive S2. Regular rate and rhythm. Abdomen: Positive bowel sounds in all 4 quadrants. Soft, non-tender, non- distended. : Deferred. Rectal: Deferred. Skin: Warm, dry. Intact. Extremities: 2+ radial pulses bilaterally. No lower extremity edema. Neuro: Awake, alert, oriented x3. No gross motor or sensory deficits. Cranial nerves II through XII intact. Gait not assessed. laboratory and microbiology Laboratory Tests 03/01/24 03:50 Test 03/01/24 03:50 Range/Units Serum Glucose 160 H 74-106 mg/dL Assessment/Plan Impression: Acute metabolic encephalopathy status post fall Chronic asthma Parkinson's disease Obesity, BMI 31 Acute on chronic hypoxic respiratory failure Leucocytosis Metabolic acidosis COVID positive/Viral pneumonia Events: Remains on supplemental oxygen, 4 LPM NC Taper O2 as tolerated Continue bronchodilators Continue IV steroids Continue IV antibiotics Antitussive for cough. Continue Remdesivir course Patient is stable for downgrade from the pulmonary standpoint. Labs and imaging reviewed. Rest of plan as noted below. Plan: ABG reviewed. Alkalemia due to respiratory alkalosis Monitor respiratory status closely Tachypneic due to metabolic acidosis Supplemental oxygen Keep o2 sat above 92% IS HOB elevation Aspiration pre-cautions Bronchodilators IV steroids Antitussive PRN Antibiotics- Zosyn F/u culture F/u ID recommendations DVT prophylaxis- Lovenox Prognosis: Poor given patient's multiple co-morbidities. Rest of plan per hospitalist and other consultants. Thank you, Dr. Fairbanks, for allowing me to participate in this patient's care. Further recommendations will depend on the patient's clinical course. Please do not hesitate to contact me if you have any questions or concerns. This medical document was created using an electronic medical record system with [employer] dictation system. Although these documentations are being carefully reviewed, there may still be some phonetic and typographical changes. The errors are purely typographical, due to imperfection on the software program, and do not reflect any compromise in the patient's medical care. Dietary Evaluation Review Comments: 1) Continue current plan of care Expected Outcomes/Goals: F/U in 3-5 days Plan discussed with: Patient, Other (ABAD Conde) JACKSON CURRAN MD Mar 01, 2024 20:42
--- NOTE | 2024-03-01 23:11 | DVHPN2 ---
Progress Note - Dictate Date Seen: Mar 01, 2024 Medical Necessity Reason Pt with a Central, PICC or Fol: No Subjective Patient's CT angio shows no evidence of PE but bilateral consolidation. Patient is currently on 4 L of oxygen. NO S/S OF SOB, DISTRESS, OR PAIN NOTED. WBC ius 17.6 vital signs Vital Sign Date Time Temp Pulse Resp B/P (MAP) Pulse Ox O2 Delivery O2 Flow Rate FiO2 03/01/24 21:00 98.0 72 16 137/70 (92) 97 98.0 03/01/24 20:00 Oxymizer 7 N/A Total Intake and Output 02/29/24 02/29/24 03/01/24 15:00 23:00 07:00 Intake Total 280 ml 720 ml 400 ml Output Total 801 ml 800 ml Balance 280 ml -81 ml -400 ml medications Current Medications Medications Dose Ordered Sig/Ike Route Start Time Stop Time Status Last Admin Dose Admin Acetaminophen/ Hydrocodone Bitart 1 tab Q4HP PRN PO 02/27/24 15:30 02/28/24 16:14 1 TAB Ondansetron HCl 4 mg Q4HP PRN IV 02/27/24 15:30 Docusate Sodium 100 mg BIDPRN PRN PO 02/27/24 15:30 Enoxaparin Sodium 40 mg DAILY SC 02/28/24 10:00 03/01/24 08:27 40 MG Acetaminophen 650 mg Q6HP PRN PO 02/27/24 15:30 03/01/24 18:23 650 MG Morphine Sulfate 2 mg Q4HPRN PRN IV 02/27/24 15:30 Nitroglycerin 0.4 mg Q5MINP PRN SL 02/27/24 15:30 Morphine Sulfate 2 mg Q30M PRN IV 02/27/24 15:30 Carbidopa/Levodopa 1 tab TID PO 02/27/24 16:00 03/01/24 22:01 1 TAB Donepezil HCl 10 mg DAILY PO 02/28/24 10:00 03/01/24 08:27 10 MG Albuterol 2.5 mg Q2HPRN PRN NEB 02/28/24 16:45 Methylprednisolone Sodium Succinate 60 mg Q8HR IV 02/28/24 22:00 03/01/24 22:02 60 MG Piperacillin Sod/ Tazobactam Sod 100 ml @ 25 mls/hr Q8H IV 02/29/24 12:00 03/01/24 22:02 25 MLS/HR Guaifenesin 200 mg Q4HP PRN GT 02/29/24 11:30 Albuterol 2.5 mg Q4HWA NEB 02/29/24 18:00 03/01/24 22:38 2.5 MG Remdesivir 0 ml @ 0 mls/hr PER PHARMACY IV 03/01/24 15:00 03/03/24 15:01 Remdesivir 100 mg/ Sodium Chloride 250 ml @ 250 mls/hr DAILY@1500 IV 03/02/24 15:00 03/03/24 15:59 objective HEENT: Pupils are reactive Neck is supple CV is S1-S2 regular rate and rhythm Respiratory diminished breath sounds bases GI positive bowel sound 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 COVID-19 infection 2. Acute hypoxic respiratory failure on O2 3. Acute encephalopathy status post fall 4. Chronic asthma 5. Parkinson's disease Recommendations 1. start remdesivir for 3-5 days 2. Continue dexamethasone 6 mg per daily ( or equivalent steroids) for 10 days or until discharge 3. Consider self proning 4. Discontinue antibiotics as the bacterial coinfection with initial presentation of Covid is less than 10% hence IDSA/NIH does not recommend empiric antibiotics. Thank you for opportunity of caring this patient Dietary Evaluation Review Comments: 1) Continue current plan of care Expected Outcomes/Goals: F/U in 3-5 days JANN MENJIVAR MD Mar 01, 2024 23:11
[2024-03-02] VITALS (21 sets, daily range): BP systolic 118–139; BP diastolic 56–85; PULSE 58–75; RESP 14–22; TEMP 97.6–98.3; O2SAT 92–99
[2024-03-02 06:07] LABS: RPR Non Reactive (Non Reactive)
[2024-03-02] MEDS: REMDESIVIR 100mg in NS 230mL (3 DAY REGIMEN) IV SCH (16:38)
--- NOTE | 2024-03-02 17:49 | DVHPN2 ---
Subjective Patient is currently on remdesivir day 2/. 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 Medications Current Medications Medications Dose Ordered Sig/Ike Route Start Time Stop Time Status Last Admin Dose Admin Acetaminophen/ Hydrocodone Bitart 1 tab Q4HP PRN PO 02/27/24 15:30 03/02/24 04:04 1 TAB Ondansetron HCl 4 mg Q4HP PRN IV 02/27/24 15:30 Docusate Sodium 100 mg BIDPRN PRN PO 02/27/24 15:30 Enoxaparin Sodium 40 mg DAILY SC 02/28/24 10:00 03/02/24 10:34 40 MG Acetaminophen 650 mg Q6HP PRN PO 02/27/24 15:30 03/01/24 18:23 650 MG Morphine Sulfate 2 mg Q4HPRN PRN IV 02/27/24 15:30 Nitroglycerin 0.4 mg Q5MINP PRN SL 02/27/24 15:30 Morphine Sulfate 2 mg Q30M PRN IV 02/27/24 15:30 Carbidopa/Levodopa 1 tab TID PO 02/27/24 16:00 03/02/24 16:37 1 TAB Donepezil HCl 10 mg DAILY PO 02/28/24 10:00 03/02/24 10:34 10 MG Albuterol 2.5 mg Q2HPRN PRN NEB 02/28/24 16:45 Methylprednisolone Sodium Succinate 60 mg Q8HR IV 02/28/24 22:00 03/02/24 16:37 60 MG Piperacillin Sod/ Tazobactam Sod 100 ml @ 25 mls/hr Q8H IV 02/29/24 12:00 03/02/24 12:42 25 MLS/HR Guaifenesin 200 mg Q4HP PRN GT 02/29/24 11:30 Albuterol 2.5 mg Q4HWA NEB 02/29/24 18:00 03/02/24 13:50 2.5 MG Remdesivir 0 ml @ 0 mls/hr PER PHARMACY IV 03/01/24 15:00 03/03/24 15:01 Remdesivir 100 mg/ Sodium Chloride 250 ml @ 250 mls/hr DAILY@1500 IV 03/02/24 15:00 03/03/24 15:59 03/02/24 16:38 250 MLS/HR Laboratory Results Laboratory Tests 03/01/24 03:50 Urinalysis Test 02/28/24 01:55 Urine Color Yellow (Yellow) Urine Clarity Clear (Clear) Urine pH 5.5 (5.0-9.0) Urine Specific [place] 1.018 (1.001-1.035) Urine Protein Negative (Negative) Urine Ketones Trace (Negative) Urine Blood Negative /uL (Negative) Urine Nitrite Negative (Negative) Urine Bilirubin Negative (Negative) Urine Urobilinogen Normal mg/dL (Negative) Urine Leukocyte Esterase Negative /uL (Negative) Urine RBC 1 /hpf (0 - 3) Urine WBC None seen /hpf (0 - 3) Urine Squamous Epithelial Cells None seen /hpf (<5) Urine Bacteria None seen /hpf (None Seen) Urine Mucus Few (None Seen) Urine Glucose Normal mg/dL (Normal) Microbiology Microbiology Date/Time Source Procedure Growth Status 03/01/24 09:00 Nose MRSA Screen - Final Complete Assessment/Plan Assessment/Plan 73-year-old male who initially presented to hospital with status post fall found to have 1. Acute hypoxic respiratory failure suspected secondary to acute asthma exacerbation , PE has been ruled out, CURRENTLY ON 4 L 2. Acute on chronic asthma exacerbation 3. Bilateral pneumonia 4. Acute viral pneumonia with a positive COVID-19 5. Parkinson's disease 6. Acute encephalopathy secondary to 1., improving -med nebs, taper off IV Solu-Medrol, IV antibiotics, remdesivir per Infectious Disease. Pulmonary and Infectious Disease consultation -plan of care discussed with the bedside RN . Plan discussed with: Patient My Orders Orders - SONIA ZAVALA MD Procedure Category Date Status Time Methylprednisolone PHA 12/10/24 Logged Sod Succ (Solu Medrol 22:00 Date of Service: Mar 02, 2024 Billing Provider: SONIA ZAVALA MD Common Visit Codes: NOT BILLABLE SONIA ZAVALA MD Mar 02, 2024 17:49
--- NOTE | 2024-03-02 21:47 | DVHPN2 ---
Progress Note - Dictate Date Seen: Mar 02, 2024 Medical Necessity Reason Pt with a Central, PICC or Fol: No Subjective Patient's CT angio shows no evidence of PE but bilateral consolidation. Patient is currently on 4 L of oxygen. NO S/S OF SOB, DISTRESS, OR PAIN NOTED. vital signs Vital Sign Date Time Temp Pulse Resp B/P (MAP) Pulse Ox O2 Delivery O2 Flow Rate FiO2 03/02/24 17:00 98.0 58 19 128/63 (84) 95 98.0 03/02/24 13:50 Nasal Cannula 2.0 03/02/24 10:00 28 Total Intake and Output 03/01/24 03/01/24 03/02/24 15:00 23:00 07:00 Intake Total 574 ml 420 ml Output Total 425 ml 300 ml Balance 149 ml 120 ml medications Current Medications Medications Dose Ordered Sig/Ike Route Start Time Stop Time Status Last Admin Dose Admin Acetaminophen/ Hydrocodone Bitart 1 tab Q4HP PRN PO 02/27/24 15:30 03/02/24 04:04 1 TAB Ondansetron HCl 4 mg Q4HP PRN IV 02/27/24 15:30 Docusate Sodium 100 mg BIDPRN PRN PO 02/27/24 15:30 Enoxaparin Sodium 40 mg DAILY SC 02/28/24 10:00 03/02/24 10:34 40 MG Acetaminophen 650 mg Q6HP PRN PO 02/27/24 15:30 03/01/24 18:23 650 MG Morphine Sulfate 2 mg Q4HPRN PRN IV 02/27/24 15:30 Nitroglycerin 0.4 mg Q5MINP PRN SL 02/27/24 15:30 Morphine Sulfate 2 mg Q30M PRN IV 02/27/24 15:30 Carbidopa/Levodopa 1 tab TID PO 02/27/24 16:00 03/02/24 16:37 1 TAB Donepezil HCl 10 mg DAILY PO 02/28/24 10:00 03/02/24 10:34 10 MG Albuterol 2.5 mg Q2HPRN PRN NEB 02/28/24 16:45 Piperacillin Sod/ Tazobactam Sod 100 ml @ 25 mls/hr Q8H IV 02/29/24 12:00 03/02/24 20:31 25 MLS/HR Guaifenesin 200 mg Q4HP PRN GT 02/29/24 11:30 Albuterol 2.5 mg Q4HWA NEB 02/29/24 18:00 03/02/24 19:03 2.5 MG Remdesivir 0 ml @ 0 mls/hr PER PHARMACY IV 03/01/24 15:00 03/03/24 15:01 Remdesivir 100 mg/ Sodium Chloride 250 ml @ 250 mls/hr DAILY@1500 IV 03/02/24 15:00 03/03/24 15:59 03/02/24 16:38 250 MLS/HR Methylprednisolone Sodium Succinate 40 mg Q8HR IV 03/02/24 22:00 objective HEENT: Pupils are reactive Neck is supple CV is S1-S2 regular rate and rhythm Respiratory diminished breath sounds bases GI positive bowel sound 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 COVID-19 infection 2. Acute hypoxic respiratory failure on O2 3. Acute encephalopathy status post fall 4. Chronic asthma 5. Parkinson's disease Recommendations 1. start remdesivir for 3-5 days 2. Continue dexamethasone 6 mg per daily ( or equivalent steroids) for 10 days or until discharge 3. Consider self proning 4. Discontinue antibiotics as the bacterial coinfection with initial presentation of Covid is less than 10% hence IDSA/NIH does not recommend empiric antibiotics. Thank you for opportunity of caring this patient Dietary Evaluation Review Comments: 1) Continue current plan of care Expected Outcomes/Goals: F/U in 3-5 days JANN MENJIVAR MD Mar 02, 2024 21:47
[2024-03-02] MEDS: methylPREDNISolone SOD SUCC 40 MG/ML VL IV SCH (21:50)
--- NOTE | 2024-03-02 22:03 | DVHPN2 ---
Progress Note - Dictate Date Seen: Mar 02, 2024 Medical Necessity Reason Pt with a Central, PICC or Fol: No Subjective Patient seen and examined at bedside. Remains on supplemental oxygen Overnight events reviewed. vital signs Vital Sign Date Time Temp Pulse Resp B/P (MAP) Pulse Ox O2 Delivery O2 Flow Rate FiO2 03/02/24 17:00 98.0 58 19 128/63 (84) 95 98.0 03/02/24 13:50 Nasal Cannula 2.0 03/02/24 10:00 28 Total Intake and Output 03/01/24 03/01/24 03/02/24 15:00 23:00 07:00 Intake Total 574 ml 420 ml Output Total 425 ml 300 ml Balance 149 ml 120 ml medications Current Medications Medications Dose Ordered Sig/Ike Route Start Time Stop Time Status Last Admin Dose Admin Acetaminophen/ Hydrocodone Bitart 1 tab Q4HP PRN PO 02/27/24 15:30 03/02/24 04:04 1 TAB Ondansetron HCl 4 mg Q4HP PRN IV 02/27/24 15:30 Docusate Sodium 100 mg BIDPRN PRN PO 02/27/24 15:30 Enoxaparin Sodium 40 mg DAILY SC 02/28/24 10:00 03/02/24 10:34 40 MG Acetaminophen 650 mg Q6HP PRN PO 02/27/24 15:30 03/01/24 18:23 650 MG Morphine Sulfate 2 mg Q4HPRN PRN IV 02/27/24 15:30 Nitroglycerin 0.4 mg Q5MINP PRN SL 02/27/24 15:30 Morphine Sulfate 2 mg Q30M PRN IV 02/27/24 15:30 Carbidopa/Levodopa 1 tab TID PO 02/27/24 16:00 03/02/24 21:49 1 TAB Donepezil HCl 10 mg DAILY PO 02/28/24 10:00 03/02/24 10:34 10 MG Albuterol 2.5 mg Q2HPRN PRN NEB 02/28/24 16:45 Piperacillin Sod/ Tazobactam Sod 100 ml @ 25 mls/hr Q8H IV 02/29/24 12:00 03/02/24 20:31 25 MLS/HR Guaifenesin 200 mg Q4HP PRN GT 02/29/24 11:30 Albuterol 2.5 mg Q4HWA NEB 02/29/24 18:00 03/02/24 19:03 2.5 MG Remdesivir 0 ml @ 0 mls/hr PER PHARMACY IV 03/01/24 15:00 03/03/24 15:01 Remdesivir 100 mg/ Sodium Chloride 250 ml @ 250 mls/hr DAILY@1500 IV 03/02/24 15:00 03/03/24 15:59 03/02/24 16:38 250 MLS/HR Methylprednisolone Sodium Succinate 40 mg Q8HR IV 03/02/24 22:00 03/02/24 21:50 40 MG objective Gen.: Patient lying in bed in no apparent distress. On supplemental oxygen. Head: Normocephalic, atraumatic. Eyes: EOMI/PERRLA. Ears: Normal hearing. Normal anatomy. Neck/trachea: Trachea midline, supple. Nose: Normal external anatomy. Mouth: Moist mucous membranes. Chest: Decreased air entry bilaterally. No wheezing or rhonchi. Cardiovascular: Positive S1, positive S2. Regular rate and rhythm. Abdomen: Positive bowel sounds in all 4 quadrants. Soft, non-tender, non- distended. : Deferred. Rectal: Deferred. Skin: Warm, dry. Intact. Extremities: 2+ radial pulses bilaterally. No lower extremity edema. Neuro: Awake, alert, oriented x3. No gross motor or sensory deficits. Cranial nerves II through XII intact. Gait not assessed. laboratory and microbiology Laboratory Tests 03/01/24 03:50 Test 03/01/24 03:50 Range/Units Serum Glucose 160 H 74-106 mg/dL Assessment/Plan Impression: Acute metabolic encephalopathy status post fall Chronic asthma Parkinson's disease Obesity, BMI 31 Acute on chronic hypoxic respiratory failure Leucocytosis Metabolic acidosis COVID positive/Viral pneumonia Events: Remains on supplemental oxygen, 2 LPM NC Taper O2 as tolerated Improving O2 requirements. Continue bronchodilators Continue IV steroids Continue IV antibiotics - Zosyn Antitussive for cough. Continue Remdesivir course Physical therapy. 1:1 monitoring for safety. Patient is feeling better, lungs CTAB on exam. Labs and imaging reviewed. Rest of plan as noted below. Plan: ABG reviewed. Alkalemia due to respiratory alkalosis Monitor respiratory status closely Tachypneic due to metabolic acidosis Supplemental oxygen Keep o2 sat above 92% IS HOB elevation Aspiration pre-cautions Bronchodilators IV steroids Antitussive PRN Antibiotics- Zosyn F/u culture F/u ID recommendations DVT prophylaxis- Lovenox Prognosis: Poor given patient's multiple co-morbidities. Rest of plan per hospitalist and other consultants. Thank you, Dr. Fairbanks, for allowing me to participate in this patient's care. Further recommendations will depend on the patient's clinical course. Please do not hesitate to contact me if you have any questions or concerns. This medical document was created using an electronic medical record system with [employer] dictation system. Although these documentations are being carefully reviewed, there may still be some phonetic and typographical changes. The errors are purely typographical, due to imperfection on the software program, and do not reflect any compromise in the patient's medical care. Dietary Evaluation Review Comments: 1) Continue current plan of care Expected Outcomes/Goals: F/U in 3-5 days Plan discussed with: Patient, Other (RN Summer) JACKSON CURRAN MD Mar 02, 2024 22:03
[2024-03-03] VITALS (20 sets, daily range): BP systolic 116–141; BP diastolic 63–74; PULSE 16–80; RESP 16–20; TEMP 97.7–98.4; O2SAT 93–100
--- NOTE | 2024-03-03 16:20 | DVHPN2 ---
Subjective Patient is currently on remdesivir day three, as per nurse patient has been increasing confusion, head CT has been ordered. Reviewed: Care Plan Changes from previous H/P or p: No Changes Objective Vitals Vital Signs Date Time Temp Pulse Resp B/P (MAP) Pulse Ox O2 Delivery O2 Flow Rate FiO2 03/03/24 14:43 60 16 94 03/03/24 14:37 Nasal Cannula 3.0 03/03/24 14:37 32 03/03/24 12:49 98.4 133/70 (91) 98.4 Intake/Output Intake and Output 03/03/24 07:00 Intake Total 1819 ml Output Total 1785 ml Balance 34 ml Intake Oral 1469 ml IV Total 350 ml Output Urine Total 1785 ml Exam HEENT pupils are reactive Neck is supple CV is S1-S2 regular rate and rhythm Respiratory bilateral expiratory rhonchi GI positive bowel sound Extremity no edema 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 minimally following commands Medications Current Medications Medications Dose Ordered Sig/Ike Route Start Time Stop Time Status Last Admin Dose Admin Acetaminophen/ Hydrocodone Bitart 1 tab Q4HP PRN PO 02/27/24 15:30 03/02/24 04:04 1 TAB Ondansetron HCl 4 mg Q4HP PRN IV 02/27/24 15:30 Docusate Sodium 100 mg BIDPRN PRN PO 02/27/24 15:30 Enoxaparin Sodium 40 mg DAILY SC 02/28/24 10:00 03/03/24 10:20 40 MG Acetaminophen 650 mg Q6HP PRN PO 02/27/24 15:30 03/01/24 18:23 650 MG Morphine Sulfate 2 mg Q4HPRN PRN IV 02/27/24 15:30 Nitroglycerin 0.4 mg Q5MINP PRN SL 02/27/24 15:30 Morphine Sulfate 2 mg Q30M PRN IV 02/27/24 15:30 Carbidopa/Levodopa 1 tab TID PO 02/27/24 16:00 03/03/24 15:56 1 TAB Donepezil HCl 10 mg DAILY PO 02/28/24 10:00 03/03/24 10:20 10 MG Albuterol 2.5 mg Q2HPRN PRN NEB 02/28/24 16:45 Piperacillin Sod/ Tazobactam Sod 100 ml @ 25 mls/hr Q8H IV 02/29/24 12:00 03/03/24 11:54 25 MLS/HR Guaifenesin 200 mg Q4HP PRN GT 02/29/24 11:30 Albuterol 2.5 mg Q4HWA NEB 02/29/24 18:00 03/03/24 14:37 2.5 MG Methylprednisolone Sodium Succinate 40 mg Q8HR IV 03/02/24 22:00 03/03/24 15:56 40 MG Laboratory Results Laboratory Tests 03/01/24 03:50 Urinalysis Test 02/28/24 01:55 Urine Color Yellow (Yellow) Urine Clarity Clear (Clear) Urine pH 5.5 (5.0-9.0) Urine Specific [place] 1.018 (1.001-1.035) Urine Protein Negative (Negative) Urine Ketones Trace (Negative) Urine Blood Negative /uL (Negative) Urine Nitrite Negative (Negative) Urine Bilirubin Negative (Negative) Urine Urobilinogen Normal mg/dL (Negative) Urine Leukocyte Esterase Negative /uL (Negative) Urine RBC 1 /hpf (0 - 3) Urine WBC None seen /hpf (0 - 3) Urine Squamous Epithelial Cells None seen /hpf (<5) Urine Bacteria None seen /hpf (None Seen) Urine Mucus Few (None Seen) Urine Glucose Normal mg/dL (Normal) Microbiology Microbiology Date/Time Source Procedure Growth Status 03/01/24 09:00 Nose MRSA Screen - Final Complete Assessment/Plan Assessment/Plan 73-year-old male who initially presented to hospital with status post fall found to have 1. Acute hypoxic respiratory failure suspected secondary to acute asthma exacerbation , PE has been ruled out, CURRENTLY ON 4 L 2. Acute on chronic asthma exacerbation 3. Bilateral pneumonia 4. Acute viral pneumonia with a positive COVID-19 5. Parkinson's disease 6. Acute encephalopathy secondary to 1. -med nebs, taper off IV Solu-Medrol, IV antibiotics, remdesivir per Infectious Disease. Pulmonary and Infectious Disease consultation -plan of care discussed with the bedside RN . -repeat head CT noncontrast Plan discussed with: Patient, Other My Orders Orders - SONIA ZAVALA MD Procedure Category Date Status Time Methylprednisolone PHA 03/02/24 In Process Sod Succ (Solu Medrol 22:00 Pt Request For Service PT 03/03/24 Logged 14:20 Cardiac DIET 03/03/24 Transmitted Diet-2gna,Lofat,Lochol D[place] Head Without Contrast CT 03/03/24 Transmitted 16:16 Date of Service: Mar 03, 2024 Billing Provider: SONIA ZAVALA MD Common Visit Codes: NOT BILLABLE SONIA ZAVALA MD Mar 03, 2024 16:20
--- NOTE | 2024-03-03 17:09 | DVH ---
EXAM: CT HEAD WITHOUT CONTRAST INDICATION: Increasing confusion. TECHNIQUE: CT of the head without intravenous contrast. Radiation Dose Information: CT Dose: CTDI volume is 65.26 mGy. Dose-length product is 1044.17 mGy*cm The dose indicators for CT are the volume Computed Tomography (CT) Dose Index (CTDIvol) and the Dose Length Product (DLP), and are measured in units of mGy and mGy-cm, respectively. These indicators are not patient dose, but values generated from the CT scanner acquisition factors. The report includes radiation exposure data for exposures received during this examination. COMPARISON: CT HEAD WITHOUT CONTRAST on DOS: 02/27/24 FINDINGS: There is no evidence of acute intracranial hemorrhage, extra-axial collection, mass effect, midline s hift, herniation or hydrocephalus. The ventricles, sulci and cisterns are age appropriate. The lopez-white differentiation is intact. Patchy periventricular and subcortical white matter hypoattenuation is nonspecific but may be related to small vessel ischemic disease. Air-fluid level in the left maxillary sinus with bilateral ethmoid and sphenoid mucoperiosteal thicke philomena. The surrounding soft tissues and osseous structures are unremarkable. IMPRESSION: 1. No CT evidence of acute intracranial abnormality. 2. Findings suggestive of sinusitis. HS:Y
--- NOTE | 2024-03-03 18:25 | DVHPN2 ---
Progress Note - Dictate Date Seen: Mar 03, 2024 Medical Necessity Reason Pt with a Central, PICC or Fol: No Subjective Patient is currently on remdesivir day 3. As per nurse, patient has been increasing confusion. vital signs Vital Sign Date Time Temp Pulse Resp B/P (MAP) Pulse Ox O2 Delivery O2 Flow Rate FiO2 03/03/24 17:21 98.2 69 17 116/64 (81) 94 98.2 03/03/24 14:37 Nasal Cannula 3.0 03/03/24 14:37 32 Total Intake and Output 03/02/24 03/02/24 03/03/24 15:00 23:00 07:00 Intake Total 1139 ml 680 ml Output Total 725 ml 1060 ml Balance 414 ml -380 ml medications Current Medications Medications Dose Ordered Sig/Ike Route Start Time Stop Time Status Last Admin Dose Admin Acetaminophen/ Hydrocodone Bitart 1 tab Q4HP PRN PO 02/27/24 15:30 03/02/24 04:04 1 TAB Ondansetron HCl 4 mg Q4HP PRN IV 02/27/24 15:30 Docusate Sodium 100 mg BIDPRN PRN PO 02/27/24 15:30 Enoxaparin Sodium 40 mg DAILY SC 02/28/24 10:00 03/03/24 10:20 40 MG Acetaminophen 650 mg Q6HP PRN PO 02/27/24 15:30 03/01/24 18:23 650 MG Morphine Sulfate 2 mg Q4HPRN PRN IV 02/27/24 15:30 Nitroglycerin 0.4 mg Q5MINP PRN SL 02/27/24 15:30 Morphine Sulfate 2 mg Q30M PRN IV 02/27/24 15:30 Carbidopa/Levodopa 1 tab TID PO 02/27/24 16:00 03/03/24 15:56 1 TAB Donepezil HCl 10 mg DAILY PO 02/28/24 10:00 03/03/24 10:20 10 MG Albuterol 2.5 mg Q2HPRN PRN NEB 02/28/24 16:45 Piperacillin Sod/ Tazobactam Sod 100 ml @ 25 mls/hr Q8H IV 02/29/24 12:00 03/03/24 11:54 25 MLS/HR Guaifenesin 200 mg Q4HP PRN GT 02/29/24 11:30 Albuterol 2.5 mg Q4HWA NEB 02/29/24 18:00 03/03/24 14:37 2.5 MG Methylprednisolone Sodium Succinate 40 mg Q8HR IV 03/02/24 22:00 03/03/24 15:56 40 MG objective HEENT: Pupils are reactive Neck is supple CV is S1-S2 regular rate and rhythm Respiratory diminished breath sounds bases GI positive bowel sound 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 laboratory and microbiology Laboratory Tests 03/01/24 03:50 Test 03/01/24 03:50 Range/Units Serum Glucose 160 H 74-106 mg/dL Assessment/Plan Patient is a 73-year-old male with COVID-19 infection Acute hypoxic respiratory failure on O2 Acute encephalopathy status post fall Chronic asthma Parkinson's disease Recommendations: Start Remdesivir for 3-5 days Continue Dexamethasone 6 mg per daily (or equivalent steroids) for 10 days or until discharge Consider self proning Discontinue antibiotics as the bacterial coinfection with initial presentation of COVID is less than 10% hence IDSA/NIH does not recommend empiric antibiotics. 03/03, Head CT showed: No CT evidence of acute intracranial abnormality. Findings suggestive of sinusitis. 03/01, MRSA: Negative Thank you for opportunity of caring this patient. Dietary Evaluation Review Comments: 1) Continue current plan of care Expected Outcomes/Goals: F/U in 3-5 days Plan discussed with: JANN Carreon MD Mar 03, 2024 18:25
--- NOTE | 2024-03-03 22:37 | DVHPN2 ---
Progress Note - Dictate Date Seen: Mar 03, 2024 Medical Necessity Reason Pt with a Central, PICC or Fol: No Subjective Patient seen and examined at bedside. Remains on supplemental oxygen Overnight events reviewed. vital signs Vital Sign Date Time Temp Pulse Resp B/P (MAP) Pulse Ox O2 Delivery O2 Flow Rate FiO2 03/03/24 21:00 98.1 65 18 141/74 (96) 95 98.1 03/03/24 18:39 Nasal Cannula 3.0 03/03/24 18:39 32 Total Intake and Output 03/02/24 03/02/24 03/03/24 15:00 23:00 07:00 Intake Total 1139 ml 680 ml Output Total 725 ml 1060 ml Balance 414 ml -380 ml medications Current Medications Medications Dose Ordered Sig/Ike Route Start Time Stop Time Status Last Admin Dose Admin Acetaminophen/ Hydrocodone Bitart 1 tab Q4HP PRN PO 02/27/24 15:30 03/02/24 04:04 1 TAB Ondansetron HCl 4 mg Q4HP PRN IV 02/27/24 15:30 Docusate Sodium 100 mg BIDPRN PRN PO 02/27/24 15:30 Enoxaparin Sodium 40 mg DAILY SC 02/28/24 10:00 03/03/24 10:20 40 MG Acetaminophen 650 mg Q6HP PRN PO 02/27/24 15:30 03/01/24 18:23 650 MG Morphine Sulfate 2 mg Q4HPRN PRN IV 02/27/24 15:30 Nitroglycerin 0.4 mg Q5MINP PRN SL 02/27/24 15:30 Morphine Sulfate 2 mg Q30M PRN IV 02/27/24 15:30 Carbidopa/Levodopa 1 tab TID PO 02/27/24 16:00 03/03/24 20:51 1 TAB Donepezil HCl 10 mg DAILY PO 02/28/24 10:00 03/03/24 10:20 10 MG Albuterol 2.5 mg Q2HPRN PRN NEB 02/28/24 16:45 Piperacillin Sod/ Tazobactam Sod 100 ml @ 25 mls/hr Q8H IV 02/29/24 12:00 03/03/24 20:51 25 MLS/HR Guaifenesin 200 mg Q4HP PRN GT 02/29/24 11:30 Albuterol 2.5 mg Q4HWA NEB 02/29/24 18:00 03/03/24 18:39 2.5 MG Methylprednisolone Sodium Succinate 40 mg Q8HR IV 03/02/24 22:00 03/03/24 20:51 40 MG objective Gen.: Patient lying in bed in no apparent distress. On supplemental oxygen. Head: Normocephalic, atraumatic. Eyes: EOMI/PERRLA. Ears: Normal hearing. Normal anatomy. Neck/trachea: Trachea midline, supple. Nose: Normal external anatomy. Mouth: Moist mucous membranes. Chest: Decreased air entry bilaterally. No wheezing or rhonchi. Cardiovascular: Positive S1, positive S2. Regular rate and rhythm. Abdomen: Positive bowel sounds in all 4 quadrants. Soft, non-tender, non- distended. : Deferred. Rectal: Deferred. Skin: Warm, dry. Intact. Extremities: 2+ radial pulses bilaterally. No lower extremity edema. Neuro: Awake, alert, oriented x3. No gross motor or sensory deficits. Cranial nerves II through XII intact. Gait not assessed. laboratory and microbiology Laboratory Tests 03/01/24 03:50 Test 03/01/24 03:50 Range/Units Serum Glucose 160 H 74-106 mg/dL Assessment/Plan Impression: Acute metabolic encephalopathy status post fall Chronic asthma Parkinson's disease Obesity, BMI 31 Acute on chronic hypoxic respiratory failure Leucocytosis Metabolic acidosis COVID positive/Viral pneumonia Events: Remains on supplemental oxygen, 3 LPM NC Taper O2 as tolerated Increased O2 requirements. Continue bronchodilators Continue IV steroids Continue IV antibiotics - Zosyn Antitussive for cough. Continue Remdesivir course ID recommendations appreciated. Physical therapy. 1:1 monitoring for safety. Labs and imaging reviewed. Rest of plan as noted below. Plan: ABG reviewed. Alkalemia due to respiratory alkalosis Monitor respiratory status closely Tachypneic due to metabolic acidosis Supplemental oxygen Keep o2 sat above 92% IS HOB elevation Aspiration pre-cautions Bronchodilators IV steroids Antitussive PRN Antibiotics- Zosyn F/u culture F/u ID recommendations DVT prophylaxis- Lovenox Prognosis: Poor given patient's multiple co-morbidities. Rest of plan per hospitalist and other consultants. Thank you, Dr. Fairbanks, for allowing me to participate in this patient's care. Further recommendations will depend on the patient's clinical course. Please do not hesitate to contact me if you have any questions or concerns. This medical document was created using an electronic medical record system with [employer] dictation system. Although these documentations are being carefully reviewed, there may still be some phonetic and typographical changes. The errors are purely typographical, due to imperfection on the software program, and do not reflect any compromise in the patient's medical care. Dietary Evaluation Review Comments: 1) Continue current plan of care Expected Outcomes/Goals: F/U in 3-5 days Plan discussed with: Patient, Other (ABAD Drummond) JACKSON CURRAN MD Mar 03, 2024 22:37
[2024-03-04] VITALS (19 sets, daily range): BP systolic 106–156; BP diastolic 57–88; PULSE 54–72; RESP 13–20; TEMP 97.6–98.5; O2SAT 93–100
[2024-03-04 11:25] LABS: Base Excess 1.2 mmol/L (-2.0-3.0)
[2024-03-04 12:17] LABS: Basophils # (auto) 0 10 ^3/uL (0-0.2); Basophils % (auto) 0.1 % (0.0-2.0); Eosinophils # (auto) 0 10 ^3/uL (0-0.8); Hematocrit 39.5 % (41.0-53.0); Hemoglobin 13.5 g/dL (13.5-17.5); Lymphocytes # (auto) 0.2 10 ^3/uL (0.4-5.4); Lymphocytes % (auto) 1.7 % (10.0-50.0); Mean Corpuscular Hgb Conc. 34.3 g/dL (32.0-36.0); Mean Corpuscular Volume 90.3 fL (80.0-100.0); Monocytes # (auto) 0.8 10 ^3/uL (0-1.3); Monocytes % (auto) 7.3 % (0.0-12.0); Neutrophils # (auto) 10.3 10 ^3/uL (1.6-8.6); Neutrophils % (auto) 90.9 % (37.0-80.0); Platelet Count (auto) 211 10^3/uL (140-450); Red Blood Cells 4.37 10^6/uL (4.5-5.90); Red Cell Distribution Width 13.4 % (11.8-14.3); White Blood Cell 11.3 10^3/uL (4.4-10.8)
[2024-03-04 12:23] LABS: Chloride 104 mmol/L (98-107); Potassium 3.7 mmol/L (3.5-5.1); Sodium 139 mmol/L (136-145)
[2024-03-04 12:24] LABS: Anion Gap 7 (5-15); Carbon Dioxide 28 mmol/L (20-31)
[2024-03-04 12:25] LABS: Calcium 8.7 mg/dL (8.7-10.4)
[2024-03-04 12:30] LABS: BUN/Creatinine Ratio 23.3 (10.0-20.0); Blood Urea Nitrogen 20 mg/dL (9-23); Glucose 190 mg/dL (74-106); Magnesium 2.2 mg/dL (1.6-2.6)
--- NOTE | 2024-03-04 12:35 | DVH ---
CHEST RADIOGRAPH Indication: SOB Technique: Single frontal view of the chest was obtained Comparison: XY CHEST XRAY 1 VIEW on DOS: 02/28/24, XY CHEST PORTABLE on DOS: 02/27/24 FINDINGS: Lines and Tubes: None Lungs: No focal consolidation. Pleura: No effusion. No pneumothorax. Cardiomediastinal contours: Unremarkable Bones: No acute osseous abnormality. IMPRESSION: No acute cardiopulmonary disease.
--- NOTE | 2024-03-04 16:52 | DVHPN2 ---
Progress Note - Dictate Date Seen: Mar 04, 2024 Medical Necessity Reason Pt with a Central, PICC or Fol: No Subjective Patient denies any new acute complaint at this time. vital signs Vital Sign Date Time Temp Pulse Resp B/P (MAP) Pulse Ox O2 Delivery O2 Flow Rate FiO2 03/04/24 16:07 98.2 59 18 144/80 (101) 94 98.2 03/04/24 11:45 Nasal Cannula* 2 28 Total Intake and Output 03/03/24 03/03/24 03/04/24 15:00 23:00 07:00 Intake Total 580 ml 1000 ml 1050 ml Output Total 700 ml 1430 ml Balance 580 ml 300 ml -380 ml medications Current Medications Medications Dose Ordered Sig/Ike Route Start Time Stop Time Status Last Admin Dose Admin Acetaminophen/ Hydrocodone Bitart 1 tab Q4HP PRN PO 02/27/24 15:30 03/04/24 10:09 1 TAB Ondansetron HCl 4 mg Q4HP PRN IV 02/27/24 15:30 Docusate Sodium 100 mg BIDPRN PRN PO 02/27/24 15:30 Enoxaparin Sodium 40 mg DAILY SC 02/28/24 10:00 03/04/24 10:10 40 MG Acetaminophen 650 mg Q6HP PRN PO 02/27/24 15:30 03/01/24 18:23 650 MG Morphine Sulfate 2 mg Q4HPRN PRN IV 02/27/24 15:30 Nitroglycerin 0.4 mg Q5MINP PRN SL 02/27/24 15:30 Morphine Sulfate 2 mg Q30M PRN IV 02/27/24 15:30 Carbidopa/Levodopa 1 tab TID PO 02/27/24 16:00 03/04/24 14:52 1 TAB Donepezil HCl 10 mg DAILY PO 02/28/24 10:00 03/04/24 10:08 10 MG Albuterol 2.5 mg Q2HPRN PRN NEB 02/28/24 16:45 Piperacillin Sod/ Tazobactam Sod 100 ml @ 25 mls/hr Q8H IV 02/29/24 12:00 03/04/24 12:14 25 MLS/HR Guaifenesin 200 mg Q4HP PRN GT 02/29/24 11:30 Albuterol 2.5 mg Q4HWA NEB 02/29/24 18:00 03/04/24 14:05 2.5 MG Methylprednisolone Sodium Succinate 40 mg Q8HR IV 03/02/24 22:00 03/04/24 14:52 40 MG objective HEENT: Pupils are reactive Neck is supple CV is S1-S2 regular rate and rhythm Respiratory diminished breath sounds bases GI positive bowel sound 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 laboratory and microbiology Laboratory Tests 03/04/24 11:54 Test 03/04/24 11:54 Range/Units Serum Glucose 190 H 74-106 mg/dL Assessment/Plan Patient is a 73-year-old male with COVID-19 infection Acute hypoxic respiratory failure on O2 Acute encephalopathy status post fall Chronic asthma Parkinson's disease Recommendations: Patient received Remdesivir IV [From 03/01 to 03/03] Continue Dexamethasone 6 mg per daily (or equivalent steroids) for 10 days or until discharge Consider self proning Discontinue antibiotics as the bacterial coinfection with initial presentation of COVID is less than 10% hence IDSA/NIH does not recommend empiric antibiotics. 03/03, Head CT showed: No CT evidence of acute intracranial abnormality. Findings suggestive of sinusitis. 03/01, MRSA: Negative 03/04, Chest x-ray: No acute cardiopulmonary disease. Thank you for opportunity of caring this patient. Dietary Evaluation Review Comments: 1) Continue current plan of care Expected Outcomes/Goals: F/U in 3-5 days Plan discussed with: Patient JANN MENJIVAR MD Mar 04, 2024 16:52
--- NOTE | 2024-03-04 22:07 | DVHPN2 ---
Progress Note - Dictate Date Seen: Mar 04, 2024 Medical Necessity Reason Pt with a Central, PICC or Fol: No Subjective Patient seen and examined at bedside. Remains on supplemental oxygen Overnight events reviewed. vital signs Vital Sign Date Time Temp Pulse Resp B/P (MAP) Pulse Ox O2 Delivery O2 Flow Rate FiO2 03/04/24 21:42 93 Nasal Cannula 2.0 03/04/24 21:42 28 03/04/24 20:54 97.6 63 13 106/57 (73) 97.6 Total Intake and Output 03/03/24 03/03/24 03/04/24 15:00 23:00 07:00 Intake Total 580 ml 1000 ml 1050 ml Output Total 700 ml 1430 ml Balance 580 ml 300 ml -380 ml medications Current Medications Medications Dose Ordered Sig/Ike Route Start Time Stop Time Status Last Admin Dose Admin Acetaminophen/ Hydrocodone Bitart 1 tab Q4HP PRN PO 02/27/24 15:30 03/04/24 10:09 1 TAB Ondansetron HCl 4 mg Q4HP PRN IV 02/27/24 15:30 Docusate Sodium 100 mg BIDPRN PRN PO 02/27/24 15:30 Enoxaparin Sodium 40 mg DAILY SC 02/28/24 10:00 03/04/24 10:10 40 MG Acetaminophen 650 mg Q6HP PRN PO 02/27/24 15:30 03/01/24 18:23 650 MG Morphine Sulfate 2 mg Q4HPRN PRN IV 02/27/24 15:30 Nitroglycerin 0.4 mg Q5MINP PRN SL 02/27/24 15:30 Morphine Sulfate 2 mg Q30M PRN IV 02/27/24 15:30 Carbidopa/Levodopa 1 tab TID PO 02/27/24 16:00 03/04/24 20:41 1 TAB Donepezil HCl 10 mg DAILY PO 02/28/24 10:00 03/04/24 10:08 10 MG Albuterol 2.5 mg Q2HPRN PRN NEB 02/28/24 16:45 Piperacillin Sod/ Tazobactam Sod 100 ml @ 25 mls/hr Q8H IV 02/29/24 12:00 03/04/24 20:33 25 MLS/HR Guaifenesin 200 mg Q4HP PRN GT 02/29/24 11:30 Albuterol 2.5 mg Q4HWA NEB 02/29/24 18:00 03/04/24 18:31 2.5 MG Methylprednisolone Sodium Succinate 40 mg Q8HR IV 03/02/24 22:00 03/04/24 20:41 40 MG objective Gen.: Patient lying in bed in no apparent distress. On supplemental oxygen. Head: Normocephalic, atraumatic. Eyes: EOMI/PERRLA. Ears: Normal hearing. Normal anatomy. Neck/trachea: Trachea midline, supple. Nose: Normal external anatomy. Mouth: Moist mucous membranes. Chest: Decreased air entry bilaterally. No wheezing or rhonchi. Cardiovascular: Positive S1, positive S2. Regular rate and rhythm. Abdomen: Positive bowel sounds in all 4 quadrants. Soft, non-tender, non- distended. : Deferred. Rectal: Deferred. Skin: Warm, dry. Intact. Extremities: 2+ radial pulses bilaterally. No lower extremity edema. Neuro: Awake, alert, oriented x3. No gross motor or sensory deficits. Cranial nerves II through XII intact. Gait not assessed. laboratory and microbiology Laboratory Tests 03/04/24 11:54 Test 03/04/24 11:54 Range/Units Serum Glucose 190 H 74-106 mg/dL Assessment/Plan Impression: Acute metabolic encephalopathy status post fall Chronic asthma Parkinson's disease Obesity, BMI 31 Acute on chronic hypoxic respiratory failure Leucocytosis Metabolic acidosis COVID positive/Viral pneumonia Events: Remains on supplemental oxygen, 2 LPM NC Taper O2 as tolerated Assess for home O2 requirements. Obtain ABG on room air. Continue bronchodilators Continue IV steroids Continue IV antibiotics - Zosyn Antitussive for cough. Completed Remdesivir course Physical therapy evaluation. 1:1 monitoring for safety. Recommend SNF placement. Labs and imaging reviewed. Rest of plan as noted below. Plan: ABG reviewed. Alkalemia due to respiratory alkalosis Monitor respiratory status closely Tachypneic due to metabolic acidosis Supplemental oxygen Keep o2 sat above 92% IS HOB elevation Aspiration pre-cautions Bronchodilators IV steroids Antitussive PRN Antibiotics- Zosyn F/u culture F/u ID recommendations DVT prophylaxis- Lovenox Prognosis: Poor given patient's multiple co-morbidities. Rest of plan per hospitalist and other consultants. Thank you, Dr. Fairbanks, for allowing me to participate in this patient's care. Further recommendations will depend on the patient's clinical course. Please do not hesitate to contact me if you have any questions or concerns. This medical document was created using an electronic medical record system with [employer] dictation system. Although these documentations are being carefully reviewed, there may still be some phonetic and typographical changes. The errors are purely typographical, due to imperfection on the software program, and do not reflect any compromise in the patient's medical care. Dietary Evaluation Review Comments: 1) Continue current plan of care Expected Outcomes/Goals: F/U in 3-5 days Plan discussed with: Patient, Other (ABAD Drummond) JACKSON CURRAN MD Mar 04, 2024 22:07
[2024-03-05] VITALS (11 sets, daily range): BP systolic 116–149; BP diastolic 71–78; PULSE 57–73; RESP 14–18; TEMP 97.7–98.5; O2SAT 94–98
--- NOTE | 2024-03-05 13:46 | DVHPN2 ---
Subjective Patient finished the remdesivir . Reviewed: Care Plan Changes from previous H/P or p: No Changes Objective Vitals Vital Signs Date Time Temp Pulse Resp B/P (MAP) Pulse Ox O2 Delivery O2 Flow Rate FiO2 03/05/24 10:31 65 16 95 03/05/24 10:25 Nasal Cannula 2.0 03/05/24 10:25 28 03/05/24 04:29 97.7 149/78 (101) 97.7 Intake/Output Intake and Output 03/05/24 07:00 Intake Total 2150 ml Output Total 3050 ml Balance -900 ml Intake Oral 1850 ml IV Total 300 ml Output Urine Total 3050 ml Stool Total 0 ml Exam HEENT pupils are reactive Neck is supple CV is S1-S2 regular rate and rhythm Respiratory bilateral expiratory rhonchi GI positive bowel sound 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 Medications Current Medications Medications Dose Ordered Sig/Ike Route Start Time Stop Time Status Last Admin Dose Admin Acetaminophen/ Hydrocodone Bitart 1 tab Q4HP PRN PO 02/27/24 15:30 03/04/24 10:09 1 TAB Ondansetron HCl 4 mg Q4HP PRN IV 02/27/24 15:30 Docusate Sodium 100 mg BIDPRN PRN PO 02/27/24 15:30 Enoxaparin Sodium 40 mg DAILY SC 02/28/24 10:00 03/05/24 09:39 40 MG Acetaminophen 650 mg Q6HP PRN PO 02/27/24 15:30 03/05/24 06:23 650 MG Morphine Sulfate 2 mg Q4HPRN PRN IV 02/27/24 15:30 Nitroglycerin 0.4 mg Q5MINP PRN SL 02/27/24 15:30 Morphine Sulfate 2 mg Q30M PRN IV 02/27/24 15:30 Carbidopa/Levodopa 1 tab TID PO 02/27/24 16:00 03/05/24 13:05 1 TAB Donepezil HCl 10 mg DAILY PO 02/28/24 10:00 03/05/24 09:38 10 MG Albuterol 2.5 mg Q2HPRN PRN NEB 02/28/24 16:45 Piperacillin Sod/ Tazobactam Sod 100 ml @ 25 mls/hr Q8H IV 02/29/24 12:00 03/05/24 12:59 25 MLS/HR Guaifenesin 200 mg Q4HP PRN GT 02/29/24 11:30 Albuterol 2.5 mg Q4HWA NEB 02/29/24 18:00 03/05/24 10:25 2.5 MG Methylprednisolone Sodium Succinate 40 mg Q8HR IV 03/02/24 22:00 03/05/24 12:59 40 MG Laboratory Results Laboratory Tests 03/04/24 11:54 Urinalysis Test 02/28/24 01:55 Urine Color Yellow (Yellow) Urine Clarity Clear (Clear) Urine pH 5.5 (5.0-9.0) Urine Specific [place] 1.018 (1.001-1.035) Urine Protein Negative (Negative) Urine Ketones Trace (Negative) Urine Blood Negative /uL (Negative) Urine Nitrite Negative (Negative) Urine Bilirubin Negative (Negative) Urine Urobilinogen Normal mg/dL (Negative) Urine Leukocyte Esterase Negative /uL (Negative) Urine RBC 1 /hpf (0 - 3) Urine WBC None seen /hpf (0 - 3) Urine Squamous Epithelial Cells None seen /hpf (<5) Urine Bacteria None seen /hpf (None Seen) Urine Mucus Few (None Seen) Urine Glucose Normal mg/dL (Normal) Microbiology Microbiology Date/Time Source Procedure Growth Status 03/01/24 09:00 Nose MRSA Screen - Final Complete Assessment/Plan Assessment/Plan 73-year-old male who initially presented to hospital with status post fall found to have 1. Acute hypoxic respiratory failure suspected secondary to acute asthma exacerbation , PE has been ruled out, CURRENTLY ON 4 L 2. Acute on chronic asthma exacerbation 3. Bilateral pneumonia 4. Acute viral pneumonia with a positive COVID-19 5. Parkinson's disease 6. Acute encephalopathy secondary to 1. -med nebs, taper off IV Solu-Medrol, IV antibiotics, remdesivir per Infectious Disease. Pulmonary and Infectious Disease consultation -plan of care discussed with the bedside RN . 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
--- NOTE | 2024-03-05 15:24 | DVHDS2 ---
Discharge Summary Date of Admission Feb 27, 2024 at 15:16 Date of Discharge: Mar 05, 2024 Labs/Diagnostic Data: Laboratory Results Test 03/04/24 11:54 03/04/24 11:05 02/28/24 16:54 02/28/24 07:14 White Blood Count 11.3 10^3/uL (4.4-10.8) Red Blood Count 4.37 10^6/uL (4.5-5.90) Hemoglobin 13.5 g/dL (13.5-17.5) Hematocrit 39.5 % (41.0-53.0) Mean Corpuscular Volume 90.3 fL (80.0-100.0) Mean Corpuscular Hemoglobin 31.0 pg (28.0-32.0) Mean Corpuscular Hemoglobin Concent 34.3 g/dL (32.0-36.0) Red Cell Distribution Width 13.4 % (11.8-14.3) Platelet Count 211 10^3/uL (140-450) Mean Platelet Volume 8.5 fL (6.9-10.8) Neutrophils (%) (Auto) 90.9 % (37.0-80.0) Lymphocytes (%) (Auto) 1.7 % (10.0-50.0) Monocytes (%) (Auto) 7.3 % (0.0-12.0) Eosinophils (%) (Auto) 0.0 % (0.0-7.0) Basophils (%) (Auto) 0.1 % (0.0-2.0) Neutrophils # (Auto) 10.3 10 ^3/uL (1.6-8.6) Lymphocytes # (Auto) 0.2 10 ^3/uL (0.4-5.4) Monocytes # (Auto) 0.8 10 ^3/uL (0-1.3) Eosinophils # (Auto) 0 10 ^3/uL (0-0.8) Basophils # (Auto) 0 10 ^3/uL (0-0.2) Nucleated Red Blood Cells 0.0 % Sodium Level 139 mmol/L (136-145) Potassium Level 3.7 mmol/L (3.5-5.1) Chloride Level 104 mmol/L (98-107) Carbon Dioxide Level 28 mmol/L (20-31) Anion Gap 7 (5-15) Blood Urea Nitrogen 20 mg/dL (9-23) Creatinine 0.86 mg/dL (0.700-1.30) Glomerular Filtration Rate Calc 91 mL/min (>90) BUN/Creatinine Ratio 23.3 (10.0-20.0) Serum Glucose 190 mg/dL (74-106) Calcium Level 8.7 mg/dL (8.7-10.4) Magnesium Level 2.2 mg/dL (1.6-2.6) Blood Gas Specimen Type Arterial Blood Gas Sample Site Right brachial Blood Gas Patient Temperature 37.0 Arterial Blood Date Drawn Arterial Blood pH 7.506 (7.350-7.450) Arterial Blood Partial Pressure CO2 30.2 mmHg (35.0-48.0) Arterial Blood Partial Pressure O2 55.5 mmHg (83.0-108.0) Arterial Blood HCO3 23.3 mmol/L (21.0-28.0) Arterial Blood Oxygen Saturation 89.5 % (94.0-98.0) Arterial Blood Base Excess 1.2 mmol/L (-2.0-3.0) Arterial Blood Oxyhemoglobin 88.9 % (94.0-98.0) Arterial Blood Carboxyhemoglobin 0.5 % (0.5-1.5) Arterial Blood Methemoglobin 0.2 % (0.0-1.5) Angel Test N/a Blood Gas Total Hemoglobin 14.30 g/dL (13.5-17.5) Blood Gas Modality Room air FiO2 % 21.0 Blood Gas Liter Flow 5.00 Blood Gas Spontaneous Rate 32 Total Bilirubin 0.5 mg/dL (0.2-1.0) Aspartate Amino Transferase (AST) 49 U/L (13-40) Alanine Aminotransferase (ALT) < 9 U/L (7-40) Alkaline Phosphatase 94 U/L (46-116) Total Protein 6.9 g/dL (5.7-8.2) Albumin 4.2 g/dL (3.2-4.8) Test 02/28/24 01:55 02/27/24 17:25 02/27/24 12:00 02/27/24 09:16 Urine Color Yellow (Yellow) Urine Clarity Clear (Clear) Urine pH 5.5 (5.0-9.0) Urine Specific [place] 1.018 (1.001-1.035) Urine Protein Negative (Negative) Urine Ketones Trace (Negative) Urine Blood Negative /uL (Negative) Urine Nitrite Negative (Negative) Urine Bilirubin Negative (Negative) Urine Urobilinogen Normal mg/dL (Negative) Urine Leukocyte Esterase Negative /uL (Negative) Urine RBC 1 /hpf (0 - 3) Urine WBC None seen /hpf (0 - 3) Urine Squamous Epithelial Cells None seen /hpf (<5) Urine Bacteria None seen /hpf (None Seen) Urine Mucus Few (None Seen) Urine Glucose Normal mg/dL (Normal) Rapid Plasma Reagin Non reactive (Non Reactive) Troponin I High Sensitivity 4 ng/L (</=54) Vitamin B12 Level 800 pg/mL (211-911) Folic Acid 22.49 ng/mL (>5.38) Thyroid Stimulating Hormone (TSH) 0.68 uIU/mL (0.55-4.78) Test 02/27/24 00:00 Influenza Type A Antigen Negative (Negative) Influenza Type B Antigen Negative (Negative) SARS-CoV-2 Antigen (Rapid) Positive (NEGATIVE) Other Laboratory Tests 03/04/24 11:54 Brief Hx & Hospital Course: 73-year-old male who initially presented to hospital with status post fall found to have hypoxic respiratory failure secondary to acute asthma exacerbation PE has been ruled out. Patient was found to have bilateral pneumonia with positive COVID-19. Patient was treated with a remdesivir and IV antibiotics. Patient was he encephalopathy pain/delirium has been resolved. I talked to patient was who agree with the current plan of care. Patient was to be discharged to group home facility. Condition at Discharge: Stable Final Diagnosis/Problems List 1. Acute hypoxic respiratory failure suspected secondary to acute asthma exacerbation , PE has been ruled out, CURRENTLY ON 4 L 2. Acute on chronic asthma exacerbation 3. Bilateral pneumonia 4. Acute viral pneumonia with a positive COVID-19 5. Parkinson's disease 6. Acute encephalopathy secondary to 1. Discharge Disposition: Detention Facility SNF Discharge Will this Physician continue t: No Discharge Instruct/Medications Diet: Cardiac 2g Na,low cholest Activity: No Restrictions, As Tolerated Follow Up/Referral: Follow up with the PCP in 1-2 weeks Follow up with the Pulmonary in 1-2 weeks Medications: Resume home medication, medication reconciled. Discharge Statement: "Patient was advised to return to the ER or call 911 if any headaches, dizziness, shortness of breath, chest pain, abdominal pain, bleeding, fevers, or worsening of medical condition. Patient was counseled about treatment plan, medications, possible side effects, patientverbalized understanding. All questions were answered to the best of my ability. This discharge took greater then 30 minutes in planning, reviewing documentation, counseling the patient, and discussing with other team members." ASSESSMENT ASSESSMENT Assessment 73-year-old male who initially presented to hospital with status post fall found to have 1. Acute hypoxic respiratory failure suspected secondary to acute asthma exacerbation , PE has been ruled out, CURRENTLY ON 4 L 2. Acute on chronic asthma exacerbation 3. Bilateral pneumonia 4. Acute viral pneumonia with a positive COVID-19 5. Parkinson's disease 6. Acute encephalopathy secondary to 1. Date of Service: Mar 05, 2024 Billing Provider: SONIA ZAVALA MD Common Visit Codes: NOT BILLABLE SOINA ZAVALA MD Mar 05, 2024 15:24
--- NOTE | 2024-03-05 16:24 | DVHPN2 ---
Progress Note - Dictate Date Seen: Mar 05, 2024 Medical Necessity Reason Pt with a Central, PICC or Fol: No Subjective Patient seen and examined at bedside. Remains on supplemental oxygen Overnight events reviewed. vital signs Vital Sign Date Time Temp Pulse Resp B/P (MAP) Pulse Ox O2 Delivery O2 Flow Rate FiO2 03/05/24 14:47 72 15 98 03/05/24 14:39 Nasal Cannula 2.0 03/05/24 14:39 28 03/05/24 13:00 98.4 116/75 (89) 98.4 Total Intake and Output 03/04/24 03/04/24 03/05/24 15:00 23:00 07:00 Intake Total 700 ml 650 ml 800 ml Output Total 950 ml 2100 ml Balance 700 ml -300 ml -1300 ml objective Gen.: Patient lying in bed in no apparent distress. On supplemental oxygen. Head: Normocephalic, atraumatic. Eyes: EOMI/PERRLA. Ears: Normal hearing. Normal anatomy. Neck/trachea: Trachea midline, supple. Nose: Normal external anatomy. Mouth: Moist mucous membranes. Chest: Decreased air entry bilaterally. No wheezing or rhonchi. Cardiovascular: Positive S1, positive S2. Regular rate and rhythm. Abdomen: Positive bowel sounds in all 4 quadrants. Soft, non-tender, non- distended. : Deferred. Rectal: Deferred. Skin: Warm, dry. Intact. Extremities: 2+ radial pulses bilaterally. No lower extremity edema. Neuro: Awake, alert, oriented x3. No gross motor or sensory deficits. Cranial nerves II through XII intact. Gait not assessed. laboratory and microbiology Laboratory Tests 03/04/24 11:54 Test 03/04/24 11:54 Range/Units Serum Glucose 190 H 74-106 mg/dL Assessment/Plan Impression: Acute metabolic encephalopathy status post fall Chronic asthma Parkinson's disease Obesity, BMI 31 Acute on chronic hypoxic respiratory failure Leucocytosis Metabolic acidosis COVID positive/Viral pneumonia Events: Remains on supplemental oxygen, 2 LPM NC Taper O2 as tolerated Assess for home O2 requirements. Obtain ABG on room air. Continue bronchodilators Continue IV steroids Continue IV antibiotics - Zosyn Completed Remdesivir course Incentive spirometry Physical therapy evaluation. 1:1 monitoring for safety. Recommend SNF placement. Head of bed elevation Aspiration precautions Labs and imaging reviewed. Rest of plan as noted below. Plan: ABG reviewed. Alkalemia due to respiratory alkalosis Monitor respiratory status closely Tachypneic due to metabolic acidosis Supplemental oxygen Keep o2 sat above 92% IS HOB elevation Aspiration pre-cautions Bronchodilators IV steroids Antitussive PRN Antibiotics- Zosyn F/u culture F/u ID recommendations DVT prophylaxis- Lovenox Prognosis: Poor given patient's multiple co-morbidities. Rest of plan per hospitalist and other consultants. Thank you, Dr. Fairbanks, for allowing me to participate in this patient's care. Further recommendations will depend on the patient's clinical course. Please do not hesitate to contact me if you have any questions or concerns. This medical document was created using an electronic medical record system with [employer] dictation system. Although these documentations are being carefully reviewed, there may still be some phonetic and typographical changes. The errors are purely typographical, due to imperfection on the software program, and do not reflect any compromise in the patient's medical care. Dietary Evaluation Review Comments: 1) Continue current plan of care Expected Outcomes/Goals: F/U in 3-5 days Plan discussed with: Patient, Other (ABAD Hagen) JACKSON CURRAN MD Mar 05, 2024 16:24
== END 2024-03-05 15:15 | DRG 871 ==
LOC: ER 07:21 → EDBD 07:21 → TELE 15:16 → TELE-EAST 02-28 03:16 → ICU WEST 02-28 18:06 → EAST 03-01 12:19 → TELE-EAST 03-02 00:52
PROVIDERS: ADMIT Internal Medicine; ATTEND Hospitalist
PROC: XW033E5 Introduction of Remdesivir Anti-infective into Peripheral Vein, Percutaneous Approach, New Technology Group 5 (ICD-10-PCS; principal; 2024-03-01)
DX: A41.9 Sepsis, unspecified organism (principal); G93.41 Metabolic encephalopathy; U07.1 COVID-19; J12.82 Pneumonia due to coronavirus disease 2019; J96.21 Acute and chronic respiratory failure with hypoxia; E87.20 Acidosis, unspecified; J45.901 Unspecified asthma with (acute) exacerbation; E66.9 Obesity, unspecified; G20.A1 Parkinson's disease without dyskinesia, without mention of fluctuations; Z68.31 Body mass index [BMI] 31.0-31.9, adult
CPT/HCPCS: 36415; 36600; 70450; 71045; 71275; 80048; 80053; 81001; 82607; 82746; 82805; 83735; 84443; 84484; 85025; 86592; 87081; 87426; 87804; 93005; 94640; 97110; 97116; 97163; 97530; G0378; J2543